=== PATIENT | female | born 1945 | race Caucasian/White ===

== ENCOUNTER 2016-10-22 08:53 | Outpatient (CLI) | payer MEDICARE | END 2016-10-22 08:54 | disposition home or self-care (01) | DX: I10 Essential (primary) hypertension (principal); E78.9 Disorder of lipoprotein metabolism, unspecified ==

== ENCOUNTER 2017-01-03 14:00 | Outpatient (CLI) | payer MEDICARE | END 2017-01-03 14:01 | disposition home or self-care (01) | LOC: LAB.R 14:00 | PROVIDERS: ATTEND Family Medicine | DX: R30.0 Dysuria (principal) | CPT/HCPCS: 87086 ==

== ENCOUNTER 2017-07-07 08:00 | Outpatient (CLI) | payer MEDICARE | END 2017-07-07 08:01 | LOC: LAB.R 08:00 | PROVIDERS: ATTEND Registered Nurse | DX: R30.0 Dysuria (principal) | CPT/HCPCS: 87086 ==

== ENCOUNTER 2017-11-10 08:00 | Outpatient (CLI) | payer MEDICARE ==
[2017-11-10 12:53] LABS: HGB - HEMOGLOBIN 12.9 g/dL (12.0-16.0); MEAN CORPUSCULAR HEMOGLOBIN 30.8 pg (27.0-31.0); MEAN CORPUSCULAR HGB CONC 34.2 g/dL (32.0-36.0); MEAN CORPUSCULAR VOLUME 90.1 fL (81.0-99.0); MEAN PLATELET VOLUME 9.4 fL (7.9-10.8); RED BLOOD COUNT 4.21 10^6/uL (4.20-5.40); WHITE BLOOD COUNT 5.4 x10^3/uL (4.8-10.8)
[2017-11-10 14:31] LABS: URIC ACID 4.9 mg/dL (2.6-7.2)
[2017-11-10 14:42] LABS: CRP - C-REACTIVE PROTEIN < 1.0 mg/dL (0-1.0)
[2017-11-10 16:18] LABS: RHEUMATOID FACTOR POSITIVE (Negative)
== END 2017-11-10 08:01 | disposition home or self-care (01) ==
LOC: LAB.WCP 08:00
PROVIDERS: ATTEND Family Medicine
DX: M25.50 Pain in unspecified joint (principal)
CPT/HCPCS: 36415; 84550; 85651; 86140; 86200; 86430

== ENCOUNTER 2018-03-02 08:10 | Outpatient (CLI) | payer MEDICARE ==
[2018-03-02 12:27] LABS: BASOPHILS % (AUTO) 0.9 %; EOSINOPHILS # (AUTO) 0.2 10^3/uL (0.0-0.7); EOSINOPHILS % (AUTO) 4.7 %; HGB - HEMOGLOBIN 12.7 g/dL (12.0-16.0); LYMPHOCYTES # (AUTO) 1.9 10^3/uL (1.5-3.5); LYMPHOCYTES % (AUTO) 38.5 %; MEAN CORPUSCULAR HEMOGLOBIN 30.8 pg (27.0-31.0); MEAN CORPUSCULAR HGB CONC 34.5 g/dL (32.0-36.0); MEAN CORPUSCULAR VOLUME 89.4 fL (81.0-99.0); MEAN PLATELET VOLUME 9.5 fL (7.9-10.8); MONOCYTES # (AUTO) 0.6 10^3/uL (0.0-1.0); MONOCYTES % (AUTO) 11.8 %; NEUTROPHILS # (AUTO) 2.2 10^3/uL (1.5-6.6); NEUTROPHILS % (AUTO) 44.1 %; PLT - PLATELET COUNT 282 10^3/uL (130-450); RED BLOOD COUNT 4.14 10^6/uL (4.20-5.40); RED CELL DISTRIBUTION WIDTH 12.8 % (12.0-15.0)
[2018-03-02 12:42] LABS: ALBUMIN 3.5 g/dL (3.2-5.5); ALBUMIN/GLOBULIN RATIO 1.1 (1.0-2.2); ALKALINE PHOSPHATASE 66 IU/L (42-121); ALT ALANINE AMINOTRANSFERASE 24 IU/L (10-60); AST ASPARTATE AMINOTRANSFERASE 24 IU/L (10-42); BILIRUBIN,TOTAL 0.6 mg/dL (0.2-1.0); BUN - BLOOD UREA NITROGEN 12 mg/dL (6-20); CALCIUM 9.4 mg/dL (8.5-10.3); CARBON DIOXIDE - CO2 29 mmol/L (21-32); CHLORIDE 104 mmol/L (101-111); CHOL/HDL RATIO 2.1 (<4.4); CHOLESTEROL 111 mg/dL; CREATININE 0.6 mg/dL (0.4-1.0); GFR - MDRD 99 (>89); GLUCOSE 98 mg/dL (70-100); HDL CHOLESTEROL 53 mg/dL; LDL CHOLESTEROL,CALCULATED 34 mg/dL; LDL/HDL RATIO 0.6 (<4.4); SODIUM 141 mmol/L (135-145); TOTAL PROTEIN 6.6 g/dL (6.7-8.2); VLDL CHOLESTEROL 24 mg/dL
== END 2018-03-02 08:11 | disposition home or self-care (01) ==
LOC: LAB.WCP 08:10
PROVIDERS: ATTEND Family Medicine
DX: R60.9 Edema, unspecified (principal); E05.90 Thyrotoxicosis, unspecified without thyrotoxic crisis or storm; E78.5 Hyperlipidemia, unspecified; I10 Essential (primary) hypertension
CPT/HCPCS: 36415; 80053; 80061; 83721; 84443; 85025

== ENCOUNTER 2018-04-13 08:01 | Outpatient (CLI) | payer MEDICARE ==
[2018-04-13 13:02] LABS: THYROID STIMULATING HORMONE < 0.08 uIU/mL (0.34-5.60)
== END 2018-04-13 08:02 | disposition home or self-care (01) ==
LOC: LAB.WCP 08:01
PROVIDERS: ATTEND Family Medicine
DX: E05.90 Thyrotoxicosis, unspecified without thyrotoxic crisis or storm (principal); E05.00 Thyrotoxicosis with diffuse goiter without thyrotoxic crisis or storm
CPT/HCPCS: 36415; 81599; 83519; 84439; 84443; 84481

== ENCOUNTER 2018-04-19 10:40 | Outpatient (CLI) | payer MEDICARE ==
--- NOTE | 2018-04-20 09:22 | Mammography Report ---
Reason: SCREENING MAMMO Procedure Date: 04/19/2018 Accession Number: [id number] / [id number] Procedure: MGN - Screening Mammo Dig Bilat CPT Code: FULL RESULT: EXAM: Screening Mammo Dig Bilat DATE: 04/19/2018 10:56 AM CLINICAL HISTORY: 72-year-old female with history of benign left breast biopsy. TECHNIQUE: Bilateral CC and MLO views were obtained. COMPARISON: 06/16/2016, 08/27/2014, 04/12/2012, 09/10/2011. FINDINGS: The breasts demonstrate heterogeneously dense fibroglandular parenchyma bilaterally. A biopsy marker is again seen in the left breast. No suspicious masses, clustered microcalcifications, or regions of architectural distortion are identified. IMPRESSION: Benign findings RECOMMENDATION: Routine annual screening unless otherwise clinically indicated. BIRADS CATEGORY 2: Benign findings STANDARD QUALIFYING STATEMENTS: 1. This examination was reviewed with the aid of Computer-Aided Detection (CAD). 2. A negative or benign imaging report should not delay biopsy if clinically suspicious findings are present. Consider surgical consultation if warrented. More than 5% of cancers are not identified by imaging. 3. Dense breasts may obscure an underlying neoplasm. 4. This examination was reviewed without the aid of 3D breast imaging (tomosynthesis).
== END 2018-04-19 10:41 | disposition home or self-care (01) ==
LOC: DI.N 10:40
DX: Z12.31 Encounter for screening mammogram for malignant neoplasm of breast (principal)
CPT/HCPCS: 77067

== ENCOUNTER 2018-04-27 14:33 | Outpatient (CLI) | payer MEDICARE ==
--- NOTE | 2018-04-27 16:33 | Ultrasound Report ---
Reason: GRAVES' DISEASE Procedure Date: 04/27/2018 Accession Number: [id number] / [id number] Procedure: US - Head or Neck Soft Tissue CPT Code: FULL RESULT: EXAM: THYROID ULTRASOUND EXAM DATE: 04/27/2018 04:06 PM. CLINICAL HISTORY: GRAVES DISEASE. Follow-up COMPARISON: 08/27/2015. TECHNIQUE: Real time sonographic imaging of the thyroid was performed by the barrel and receiver aligner. Multiple retail field representative static images were saved for review. FINDINGS: THYROID GLAND: Right Lobe: 4.1 x 1.4 x 1.7 cm, volume 5.3 cc. Heterogeneous echotexture . Several subcentimeter avascular solid and cystic nodules are present. The dominant is in the inferior pole measuring 1 x 1 x 0.8 cm not appreciably changed since 2016 Left Lobe: 3.8 x 1.6 x 1.6 cm, volume 5.1 cc. Heterogeneous echotexture with several scattered predominantly subcentimeter cysts/cystic nodules. Isthmus: 0.4 cm AP. Isthmic Nodules: None. LYMPH NODES: Few scattered normal-appearing lymph nodes, dominant on the right 1.2 x 2.9 x 1 cm and on the left 0.9 x 1.7 x 0.8 cm. OTHER: No appreciable change compared with 08/27/2015. IMPRESSION: Stable thyroid ultrasound compared with 2016 redemonstrating a heterogeneous gland with multiple small cystic and solid nodules. No microcalcifications are appreciated. Management recommendations are based on 2015 [place] [employer] Management Guidelines for Adult Patients with Thyroid Nodules and Differentiated Thyroid Cancer. RADIA
== END 2018-04-27 14:34 | disposition home or self-care (01) ==
LOC: DI 14:33
PROVIDERS: ATTEND Family Medicine
DX: E05.00 Thyrotoxicosis with diffuse goiter without thyrotoxic crisis or storm (principal)
CPT/HCPCS: 76536

== ENCOUNTER 2018-07-07 01:14 | Inpatient (IN) | payer MEDICARE ==
[2018-07-07] MEDS ORDERED: SODIUM CHLORIDE 0.9% 1,000 ML IV ONE ×2 (01:45→19:31)
--- NOTE | 2018-07-07 01:45 | ED Physician Documentation ---
History of Present Illness - Stated complaint Stated Complaint: DIFF BREATHING,NAUSEA - History obtained from History obtained from: Patient, Family - History of Present Illness Timing: Enter time (2299), Today - Additonal information Additional information: 72-year-old female was feeling well earlier today went to her usual swimming pool exercise without incident. She denies any current or recent illness. She was trying to go to sleep this evening and did not feel well she then developed significant diaphoresis and when she tried to get up she collapsed and felt short of breath. Her was able to drive her to the hospital. She is come into the emergency department now feeling short of breath and dry mouth. She did have some confusion with the initial syncopal episode. She was last in to see her pyroglazer about 1 month ago who continued her on her medications. She states that she has been dealing with hyper thyroid for the past 3-4 years again after she had had a prior thyroid ablation. She is on methimazole. She has last seen her primary and had her blood pressure medications adjusted about 6 months ago. She has one prior hospitalization here for an episode of chest pain which ended up being a pulled muscle in her back. Review of Systems Constitutional: reports: Sweats Eyes: denies: Decreased vision Ears: denies: Ear pain Nose: denies: Rhinorrhea / runny nose, Congestion Throat: denies: Sore throat Cardiac: denies: Chest pain / pressure, Palpitations Respiratory: reports: Dyspnea. denies: Cough, Hemoptysis, Wheezing GI: denies: Abdominal Pain, Nausea, Vomiting : denies: Dysuria, Frequency Skin: denies: Rash Musculoskeletal: denies: Neck pain, Back pain, Extremity pain Neurologic: reports: Generalized weakness, Difficulty speaking. 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: Other : None HEENT: None Psych: None Musculoskeletal: Osteoarthritis Derm: None - Past Surgical History Past Surgical History: Yes General: Cholecystectomy, Appendectomy Ortho: Knee replacement - Present Medications Home Medications: Ambulatory Orders Medication Instructions Recorded Confirmed Aspirin [Aspir 81] 81 mg PO DAILY 01/09/13 12/20/14 Cholecalciferol (Vitamin D3) 400 unit PO DAILY 01/09/13 12/23/14 [Vitamin D] Lisinopril 30 mg PO DAILY 01/09/13 12/23/14 Lovastatin [Mevacor] 20 mg PO DAILY 01/09/13 12/23/14 Multivitamin [Multivitamins] 1 each PO DAILY 01/09/13 12/23/14 [place]-3 Fatty Acids/Fish Oil 1 each PO DAILY 01/09/13 12/23/14 [[place] 3 1,000 mg Softgel] hydroCHLOROthiazide [Hydrodiuril] 25 mg PO DAILY 01/09/13 12/23/14 Potassium Chloride [Micro-K] 10 meq PO DAILY 08/05/14 12/23/14 methIMAzole [Methimazole] 2.5 mg PO DAILY 08/05/14 12/23/14 - Allergies Allergies/Adverse Reactions: Allergies Allergy/AdvReac Type Severity Reaction Status Date / Time No Known Drug Allergies Allergy Verified 07/07/18 01:44 - Social History Does the pt smoke?: No Smoking Status: Never smoker Does the pt have substance abuse?: No - Immunizations Immunizations are current?: Yes - POLST Patient has POLST: No PD ED PE NORMAL - Vitals Vital signs reviewed: Yes (hypotensive ) - General General: Well developed/nourished, Other (72 y/o female with mildlly dysarthric speech secondary to dry mouth is hypotensive supine. ) - HEENT HEENT: Atraumatic, PERRL, EOMI, Other (dry mucous membranes ) - Neck Neck: Supple, no meningeal sign, No bony TTP - Cardiac Cardiac: RRR, No murmur - Respiratory Respiratory: No respiratory distress, Other (diminished breath sound bilaterally ) - Abdomen Abdomen: Soft, Non tender - Back Back: No CVA TTP, No spinal TTP - Derm Derm: Normal color, Warm and dry, No rash - Extremities Extremities: No deformity, No edema - Neuro Neuro: Alert and oriented X 3, panel saw operator 2-12 intact, No motor deficit, No sensory deficit, Other (dysarthric speech clears with fluids ) Eye Opening: Spontaneous Motor: Obeys Commands Verbal: Oriented GCS Score: 15 - Psych Psych: Normal mood, Normal affect Results - Vitals Vitals: Vital Signs - 24 hr 07/07/18 07/07/18 07/07/18 01:20 01:46 01:56 Temperature 36 C L Heart Rate 98 89 77 Respiratory 16 21 20 Rate Blood Pressure 79/60 L 88/49 L 96/50 L O2 Saturation 92 88 L 96 07/07/18 07/07/18 07/07/18 02:06 02:15 02:48 Temperature Heart Rate 83 73 70 Respiratory 20 18 14 Rate Blood Pressure 92/46 L 99/50 L 106/51 L O2 Saturation 96 98 98 07/07/18 07/07/18 07/07/18 03:07 03:48 04:15 Temperature Heart Rate 99 79 125 H Respiratory 18 17 15 Rate Blood Pressure 123/61 112/50 L 100/61 O2 Saturation 98 96 91 L 07/07/18 04:32 Temperature 36.0 C L Heart Rate 79 Respiratory 24 Rate Blood Pressure 101/64 O2 Saturation 98 Oxygen O2 Source Nasal cannula Oxygen Flow Rate 2 - EKG (time done) 0120 Rate: Rate (enter#) (99) Rhythm: NSR Intervals: Prolonged QT QRS: LVH Ischemia: Normal ST segments Other comments: Other comments (early transition ) Compare to prior EKG: Changed from prior EKG (08-05-14 rate has increased the previous flat T waves have resolved and the QT interval has increased. ), Other Computer interpretation: Agree with computer - Labs Labs: Laboratory Tests 07/07/18 07/07/18 07/07/18 01:38 01:45 01:45 WBC 5.2 RBC 3.96 L Hgb 12.3 Hct 36.2 L MCV 91.3 MCH 31.1 H MCHC 34.1 RDW 14.2 Plt Count 201 MPV 9.1 Neut # (Auto) 2.4 Lymph # (Auto) 2.1 [place] # (Auto) 0.4 Eos # (Auto) 0.3 Baso # (Auto) 0.1 Absolute Nucleated RBC 0.00 Nucleated RBC % 0.1 Sodium 139 Potassium 2.7 L Chloride 104 Carbon Dioxide 28 Anion Gap 7.0 BUN 20 Creatinine 0.8 Estimated GFR (MDRD) 71 L Glucose 176 H POC Whole Bld Glucose 178 H Lactic Acid Calcium 8.4 L Total Bilirubin 0.2 AST 23 ALT 24 Alkaline Phosphatase 68 Troponin I B-Natriuretic Peptide Total Protein 6.6 L Albumin 3.6 Globulin 3.0 Albumin/Globulin Ratio 1.2 Lipase 46 Urine Color Urine Clarity Urine pH Ur Specific [place] Urine Protein Urine Glucose (UA) Urine Ketones Urine Occult Blood Urine Nitrite Urine Bilirubin Urine Urobilinogen Ur Leukocyte Esterase Ur Microscopic Review Urine Culture Comments 07/07/18 07/07/18 07/07/18 01:45 01:45 01:45 WBC RBC Hgb Hct MCV MCH MCHC RDW Plt Count MPV Neut # (Auto) Lymph # (Auto) [place] # (Auto) Eos # (Auto) Baso # (Auto) Absolute Nucleated RBC Nucleated RBC % Sodium Potassium Chloride Carbon Dioxide Anion Gap BUN Creatinine Estimated GFR (MDRD) Glucose POC Whole Bld Glucose Lactic Acid 1.5 Calcium Total Bilirubin AST ALT Alkaline Phosphatase Troponin I < 0.04 B-Natriuretic Peptide 16 Total Protein Albumin Globulin Albumin/Globulin Ratio Lipase Urine Color Urine Clarity Urine pH Ur Specific [place] Urine Protein Urine Glucose (UA) Urine Ketones Urine Occult Blood Urine Nitrite Urine Bilirubin Urine Urobilinogen Ur Leukocyte Esterase Ur Microscopic Review Urine Culture Comments 07/07/18 02:50 WBC RBC Hgb Hct MCV MCH MCHC RDW Plt Count MPV Neut # (Auto) Lymph # (Auto) [place] # (Auto) Eos # (Auto) Baso # (Auto) Absolute Nucleated RBC Nucleated RBC % Sodium Potassium Chloride Carbon Dioxide Anion Gap BUN Creatinine Estimated GFR (MDRD) Glucose POC Whole Bld Glucose Lactic Acid Calcium Total Bilirubin AST ALT Alkaline Phosphatase Troponin I B-Natriuretic Peptide Total Protein Albumin Globulin Albumin/Globulin Ratio Lipase Urine Color DARK YELLOW Urine Clarity CLEAR Urine pH 6.0 Ur Specific [place] >=1.030 H Urine Protein NEGATIVE Urine Glucose (UA) NEGATIVE Urine Ketones TRACE Urine Occult Blood NEGATIVE Urine Nitrite NEGATIVE Urine Bilirubin NEGATIVE Urine Urobilinogen 0.2 (NORMAL) Ur Leukocyte Esterase NEGATIVE Ur Microscopic Review NOT INDICATED Urine Culture Comments NOT INDICATED - Rads (name of study) CT angio chest Radiology: Prelim report reviewed (Impression: 1. No large pulmonary emboli is seen segmental vessels are not well assessed due to only moderate enhancement of the pulmonary arteries, and motion artifact. 2. Elevated right hemidiaphragm with bibasilar atelectasis or infiltrate, right greater than left. 3. Mild cardiomegaly with possible interstitial edema.), Discussed with rads (atelectasis and interstial fluid more likely than bacterial pneumonia. 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 She responds to Oxygen and saline and is improved. Her diagnostics reveal bibasilar atelectasis/infiltrate with normal WBC and no evidence of PE. Her lactate is not elevated, urine is concentrated, trop is negative and potassium is low. The patient feels well laying flat and wants to go home. Her blood pressure is marginal at 100 systolic and her oxygen saturat ion on room air at the conclusion of diagnostics is 92-93%. She fails a road test miserably with heart rate to 115, O2 sat to 89% and symptoms of dyspnea and lightheadedness on standing at the bedside. It took this to convince the patient that she needed to stay and she is very agreeable to stay. Departure - Departure Disposition: 66 [facility] DC/Xfer Clinical Impression: Hypokalemia Pneumonia Qualifiers: Pneumonia type: due to unspecified organism Laterality: bilateral Lung location: lower lobe of lung Qualified Code(s): J18.1 - Lobar pneumonia, unspecified organism Condition: Fair
[2018-07-07 02:07] LABS: BASOPHILS # (AUTO) 0.1 10^3/uL (0.0-0.1); EOSINOPHILS # (AUTO) 0.3 10^3/uL (0.0-0.7); HGB - HEMOGLOBIN 12.3 g/dL (12.0-16.0); LYMPHOCYTES # (AUTO) 2.1 10^3/uL (1.5-3.5); LYMPHOCYTES % (AUTO) 40.8 %; MEAN CORPUSCULAR HEMOGLOBIN 31.1 pg (27.0-31.0); MEAN CORPUSCULAR HGB CONC 34.1 g/dL (32.0-36.0); MEAN CORPUSCULAR VOLUME 91.3 fL (81.0-99.0); MEAN PLATELET VOLUME 9.1 fL (7.9-10.8); MONOCYTES # (AUTO) 0.4 10^3/uL (0.0-1.0); MONOCYTES % (AUTO) 6.9 %; NEUTROPHILS # (AUTO) 2.4 10^3/uL (1.5-6.6); NEUTROPHILS % (AUTO) 46.3 %; PLT - PLATELET COUNT 201 10^3/uL (130-450); RED BLOOD COUNT 3.96 10^6/uL (4.20-5.40); RED CELL DISTRIBUTION WIDTH 14.2 % (12.0-15.0); WHITE BLOOD COUNT 5.2 x10^3/uL (4.8-10.8)
[2018-07-07 02:08] LABS: ALBUMIN 3.6 g/dL (3.2-5.5); ALBUMIN/GLOBULIN RATIO 1.2 (1.0-2.2); BILIRUBIN,TOTAL 0.2 mg/dL (0.2-1.0); CALCIUM 8.4 mg/dL (8.5-10.3); CREATININE 0.8 mg/dL (0.4-1.0); TOTAL PROTEIN 6.6 g/dL (6.7-8.2)
[2018-07-07] MEDS ORDERED: POTASSIUM CHLOR 10 MEQ/100 ML 10 MEQ/100 ML BAG IV ONE (02:12)
[2018-07-07] MEDS ORDERED: POTASSIUM BICARB 25 MEQ TABLET PO STA (02:12)
[2018-07-07] MEDS ORDERED: ONDANSETRON 4 MG/2 ML VIAL IVP STA (02:18)
[2018-07-07] MEDS ORDERED: ONDANSETRON 4 MG/2 ML VIAL ONE (02:23)
[2018-07-07] MEDS ORDERED: IOVERSOL 320 100 ML VIAL IVP ONE ×3 (02:25→03:45)
[2018-07-07 03:21] LABS: BILIRUBIN,URINE NEGATIVE (NEGATIVE); GLUCOSE, URINE (UA) NEGATIVE (NEGATIVE); KETONES,URINE (UA) TRACE mg/dL (NEGATIVE); LEUKOCYTE ESTERASE, URINE NEGATIVE (NEGATIVE); NITRITE,URINE NEGATIVE (NEGATIVE); OCCULT BLOOD,URINE NEGATIVE (NEGATIVE); PROTEIN,URINE NEGATIVE (NEGATIVE); UROBILINOGEN,URINE 0.2 (NORMAL) E.U./dL (NORMAL)
[2018-07-07 03:22] LABS: CLARITY,URINE CLEAR (CLEAR)
--- NOTE | 2018-07-07 04:02 | CT Report ---
Reason: syncope collapse dsypnea hypoxia hypotension Procedure Date: 07/07/2018 Accession Number: [id number] / [id number] Procedure: CT - Chest Angio (PE) CPT Code: FULL RESULT: EXAM: CT ANGIOGRAM CHEST EXAM DATE: 07/07/2018 03:44 AM. CLINICAL HISTORY: Syncope collapse dyspnea hypoxia hypotension. COMPARISON: None. TECHNIQUE: Routine helical imaging was performed through the chest in the pulmonary arterial phase. IV Contrast: OPTI 320 80mL. Reconstructions: Coronal 3-D MIP reconstructions.Sagittal and coronal. In accordance with CT protocol optimization, one or more of the following dose reduction techniques were utilized for this exam: automated exposure control, adjustment of mA and/or KV based on patient size, or use of iterative reconstructive technique. FINDINGS: Pulmonary Arteries: Diagnostic quality: Markedly suboptimal through the segmental arteries. Images are degraded due to only moderate enhancement of the pulmonary arteries. Additionally, there is motion artifact. No large pulmonary emboli are seen. Segmental vessels are not well assessed. No evidence of right heart strain. Lungs/Pleura: Elevated right hemidiaphragm. Bibasilar atelectasis or infiltrate, right greater than left. Possible interstitial edema. No pleural effusion. No pneumothorax. Mediastinum: Mild cardiomegaly. Mild coronary artery calcifications. Normal sized mediastinal lymph nodes. Thoracic Aorta: Moderate atherosclerosis. No aneurysm or dissection. Upper Abdomen: Liver cysts measuring up to 2.3 cm. Other: Degenerative changes in the spine. IMPRESSION: 1. No large pulmonary emboli is seen. Segmental vessels are not well assessed due to only moderate enhancement of the pulmonary arteries, and motion artifact. 2. Elevated right hemidiaphragm with bibasilar atelectasis or infiltrate, right greater than left. 3. Mild cardiomegaly with possible interstitial edema. RADIA
[2018-07-07] MEDS ORDERED: cefTRIAXone 1 GM in SODIUM CHLORIDE 0.9% MINIBAG 100 ML IV STA (04:39)
[2018-07-07] MEDS ORDERED: MAGNESIUM SULFATE 2 GRAM 2 GM/50 ML BAG IV ONE (04:54)
[2018-07-07] MEDS ORDERED: TEMAZEPAM 15 MG CAPSULE PO PRN (05:11)
[2018-07-07] MEDS ORDERED: ONDANSETRON 4 MG/2 ML VIAL IVP PRN (05:11)
[2018-07-07] MEDS ORDERED: PROCHLORPERAZINE 10 MG/2 ML VIAL IVP PRN (05:11)
[2018-07-07] MEDS ORDERED: ACETAMINOPHEN 325 MG TABLET PO PRN (05:11)
[2018-07-07] MEDS ORDERED: AZITHROMYCIN INJ 500 MG in SODIUM CHLORIDE 0.9% 250 ML IV STA (05:18)
[2018-07-07] MEDS: SODIUM CHLORIDE 0.9% 1,000 ML IV SCH ×2 (07:27→19:30)
--- NOTE | 2018-07-07 07:28 | HISTORY & PHYSICAL EXAMINATION ---
Chief Complaint - Chief Complaint Chief Complaint: Lightheadedness, Weakness History of Present Illness - Admitted From Admitted From:: Emergency Department - History Obtained From Records Reviewed: ED History obtained from: Patient, and Dr Angela Exam Limitations: None - History of Present Illness HPI Comment/Other: Patient is a 72-year-old female who is generally healthy with a past medical history of hyperthyroidism who presented to the emergency room after a near syncopal event at home. 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 That evening when she went to bed she started to suddenly feel unwell feeling of lightheadedness, clammy and diaphoretic. She went to stand up and felt suddenly quite weak and her legs collapsed under her but she was able to guide herself to the floor without completely passing out. She was able to leave her house on her own accord with her assisting her and she arrived at the emergency room via private vehicle. Next In the emergency room she was found to be hypotensive with blood pressures in the 80s over 50s, she had a pulse ox of 88% on room air, and there was further workup identifying a hypokalemia of 2.7. She had one episode of diarrhea after arriving to the hospital but before this did not have any diarrhea. She denies any chest pain or shortness of breath. Denies any fever, recent illnesses, or flulike symptoms. Denies any previous similar episodes.The remainder of the workup in the ER was relatively unremarkable with respect to labs and imaging. Labs as below.I was asked to admit the patient because the chest x-ray does have the suggestion of a possible community-acquired pneumonia the patient did receive 1 dose of Rocephin in the emergency room. She was also put on 2 L nasal cannula for oxygen support. 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 - Substance History Use: Uses substance without health or social issues: NONE - POLST Patient has POLST: No POLST Status: Full Code Meds/Allgy - Home Medications Home Medications: Ambulatory Orders Medication Instructions Recorded Confirmed Aspirin [Aspir 81] 81 mg PO DAILY 01/09/13 07/07/18 Lovastatin [Mevacor] 20 mg PO DAILY 01/09/13 07/07/18 Multivitamin [Multivitamins] 1 each PO DAILY 01/09/13 07/07/18 [place]-3 Fatty Acids/Fish Oil 1 each PO DAILY 01/09/13 07/07/18 [[place] 3 1,000 mg Softgel] hydroCHLOROthiazide [Hydrodiuril] 25 mg PO DAILY 01/09/13 07/07/18 Potassium Chloride [Micro-K] 10 meq PO DAILY 08/05/14 07/07/18 methIMAzole [Methimazole] 2.5 mg PO DAILY 08/05/14 07/07/18 Irbesartan 1 tab PO DAILY 07/07/18 07/07/18 Magnesium Oxide [Magnesium] 1 cap PO DAILY 07/07/18 07/07/18 [place]-3/Dha/Epa/Fish Oil [Fish Oil 1 cap PO DAILY 07/07/18 07/07/18 1,000 mg Softgel] Ubidecarenone [Co Q-10] 200 mg PO DAILY 07/07/18 07/07/18 - Allergies Allergies/Adverse Reactions: Allergies Allergy/AdvReac Type Severity Reaction Status Date / Time No Known Drug Allergies Allergy Verified 07/07/18 01:44 Prior Level of Functionality: Independent Exam - Vital Signs Reviewed Vital Signs: Yes Vital Signs: Vital Signs x48h Temp Pulse Pulse Resp BP BP Pulse Ox 07/07/18 06:45 36.4 C L 102 H 20 107/60 97 07/07/18 06:21 36.5 C 105 H 18 100/52 L 96 07/07/18 05:32 36.2 C L 85 20 109/48 L 95 07/07/18 05:08 35.9 C L 75 17 99/45 L 94 07/07/18 04:32 36.0 C L 79 24 101/64 98 07/07/18 04:15 125 H 15 100/61 91 L 07/07/18 03:48 79 17 112/50 L 96 07/07/18 03:07 99 18 123/61 98 07/07/18 02:48 70 14 106/51 L 98 07/07/18 02:15 73 18 99/50 L 98 07/07/18 02:06 83 20 92/46 L 96 07/07/18 01:56 77 20 96/50 L 96 07/07/18 01:46 89 21 88/49 L 88 L 07/07/18 01:20 36 C L 98 16 79/60 L 92 Vital Signs - 24 hr 07/07/18 07/07/18 07/07/18 01:20 01:46 01:56 Temperature 36 C L Heart Rate 98 89 77 Heart Rate [ Brachial] Respiratory 16 21 20 Rate Blood Pressure 79/60 L 88/49 L 96/50 L Blood Pressure [Right Brachial artery] O2 Saturation 92 88 L 96 07/07/18 07/07/18 07/07/18 02:06 02:15 02:48 Temperature Heart Rate 83 73 70 Heart Rate [ Brachial] Respiratory 20 18 14 Rate Blood Pressure 92/46 L 99/50 L 106/51 L Blood Pressure [Right Brachial artery] O2 Saturation 96 98 98 07/07/18 07/07/18 07/07/18 03:07 03:48 04:15 Temperature Heart Rate 99 79 125 H Heart Rate [ Brachial] Respiratory 18 17 15 Rate Blood Pressure 123/61 112/50 L 100/61 Blood Pressure [Right Brachial artery] O2 Saturation 98 96 91 L 07/07/18 07/07/18 07/07/18 04:32 05:08 05:32 Temperature 36.0 C L 35.9 C L 36.2 C L Heart Rate 79 75 85 Heart Rate [ Brachial] Respiratory 24 17 20 Rate Blood Pressure 101/64 99/45 L 109/48 L Blood Pressure [Right Brachial artery] O2 Saturation 98 94 95 07/07/18 07/07/18 06:21 06:45 Temperature 36.5 C 36.4 C L Heart Rate 105 H Heart Rate [ 102 H Brachial] Respiratory 18 20 Rate Blood Pressure 100/52 L Blood Pressure 107/60 [Right Brachial artery] O2 Saturation 96 97 Oxygen O2 Source Nasal cannula Oxygen Flow Rate 2 - Physical Exam General Appearance: positive: No acute distress Eyes Bilateral: positive: Normal inspection ENT: positive: ENT inspection nml Neck: positive: Nml inspection, Thyroid nml Respiratory: positive: Other (Minimal chest tenderness at a particular point of the left lateral chest wall) Cardiovascular: positive: Regular rate & rhythm, No murmur, No gallop, Irregularly irregular Peripheral Pulses: positive: 2+ Abdomen: positive: Non-tender, No organomegaly, Nml bowel sounds, No distention Back: negative: CVA tenderness (R), CVA tenderness (L) Skin: positive: Color nml Extremities: positive: Non-tender, No pedal edema Neurologic/Psychiatric: positive: Oriented x3, CN's nml (2-12), Motor nml, Sensation nml, Mood/affect nml Conclusion/Plan - Problem List (1) Near syncope Conclusion/Plan: Patient had a vasovagal or near syncopal events with etiology at this point not yet clearly defined. We will admit the patient and initiate to the Syncope workup with carotid ultrasound, echocardiogram, IV fluids and blood pressure monitoring. Will hold antihypertensives. Pending the results, etiology may be related to possible pneumonia as discussed below versus other viral syndrome. (2) Hypotension Conclusion/Plan: Transient hypotension with a syncopal events now improved with IV fluid resuscitation possibly related to dehydration and possibly related to community- acquired pneumonia per chest x-ray. Patient will be admitted with IV fluids and will hold antihypertensives and continue to monitor. Qualifiers: Hypotension type: orthostatic hypotension Qualified Code(s): I95.1 - Orthostatic hypotension (3) Weakness Conclusion/Plan: Generalized weakness related to syncope, seems to improve when she is at rest. Bed on exam right now she feels like she is at her baseline which tries to stand up she gets weak again. We will get orthostatic levels, check serum cortisol for possibility of renal insufficiency, treat underlying pneumonia and follow clinical course. Also given her history of hyperthyroidism and recently Adjustment on thyroid medication will check thyroid labs. (4) Hypoxia Conclusion/Plan: Chest x-ray is suggestive of pneumonia she seems to be dehydrated and this may be under exposing the extent of pneumonia as it does not seem very significant. For now given the hypoxia and her other symptoms I will treat this as a community-acquired pneumonia with azithromycin and ceftriaxone. Pending the clinical course if she stays here for another couple of days she may need a repeat chest x-ray when she is hydrated to better visualize any residual pneumonia. (5) Hyperthyroidism Conclusion/Plan: As stated above, check thyroid labs (6) Hypokalemia Conclusion/Plan: Unclear source of hypokalemia given that she is not had much GI loss and does not have any history to suggest tissue destruction. She is also on oral potassium at home for cramping. We will replace IV fluids and potassium has been replaced in the ER and will recheck the potassium level and replace as needed. - Lab Results Lab results reviewed: Yes Fish Bones: 07/07/18 01:45 07/07/18 01:45 - Diagnostic Imaging Results Diagnostic Imaging Results: positive: Prelim report reviewed, Final report reviewed - EKG Results EKG Interpreted Independently: Yes EKG Comparison: Changed from prior EKG Core Measures - Anticipated LOS I expect patient to be DC'd or transferred within 96 hours.: Yes - DVT/VTE - Prophylaxis VTE/DVT Device ordered at admit?: Yes
[2018-07-07] MEDS: SODIUM CHLORIDE FLUSH 0.9% 10 ML SYRINGE IVP PRN (07:45)
[2018-07-07] MEDS: PANTOPRAZOLE 40 MG VIAL IVP SCH (07:45)
[2018-07-07] MEDS: SODIUM CHLORIDE FLUSH 0.9% 10 ML SYRINGE IVP SCH ×2 (08:39→19:31)
[2018-07-07] MEDS ORDERED: MAGNESIUM OXIDE 400 MG TABLET PO SCH ×2 (09:00→11:00)
[2018-07-07] MEDS: MULTIVITAMIN TABLET PO SCH (10:48)
[2018-07-07] MEDS: POTASSIUM CHLORIDE 10 MEQ CAPSULE PO SCH (10:48)
[2018-07-07] MEDS: ATORVASTATIN 10 MG TABLET PO SCH (10:48)
[2018-07-07] MEDS: ASPIRIN EC 81 MG TABLET PO SCH (10:48)
[2018-07-07] MEDS: POLYETHYLENE GLYCOL 3350 17 GM PACKET PO SCH (10:49)
[2018-07-07] MEDS: methIMAzole 5 MG TABLET PO SCH (10:49)
[2018-07-07] MEDS: HYDROcod/ACETAM 5/325 MG TABLET PO PRN ×3 (11:11→21:33)
--- NOTE | 2018-07-07 13:15 | PROVIDER PROGRESS NOTE ---
Hospitalist Cross-cover Note - Cross-Cover Note Cross-Cover Note: The patient was admitted this morning by the night hospitalist. I saw and examined the patient this morning. She was weaned off of all oxygen and is now on room air. She was able to walk to the bathroom and back with assistance. The patient's orthostatics were negative. Her vital signs appear to be improving this morning. The patient's a.m. cortisol level was adequate. She is being given potassium replacement. She will be continued on IV antibiotics. She did undergo echocardiogram this morning which shows a normal ejection fraction and grade 1 diastolic dysfunction. It does not show any significant valvular abnormalities, mass or thrombus. The patient appears to be improving and is still awaiting a carotid Doppler. We will continue antibiotics over the course of the day today and if patient continues to improve she will likely be discharged in the morning.
[2018-07-07] MEDS: KETOROLAC 30 MG/ML VIAL IVP PRN (13:34)
[2018-07-08] MEDS: SODIUM CHLORIDE FLUSH 0.9% 10 ML SYRINGE IVP SCH ×2 (01:17→08:39)
--- NOTE | 2018-07-08 02:05 | Ultrasound Report ---
Reason: near syncope Procedure Date: 07/08/2018 Accession Number: [id number] / [id number] Procedure: US - Carotid Doppler Complete CPT Code: FULL RESULT: EXAM: BILATERAL CAROTID AND VERTEBRAL ARTERY DUPLEX DOPPLER ULTRASOUND: EXAM DATE: 07/08/2018 12:41 AM CLINICAL HISTORY: Near syncope. COMPARISON: None. TECHNIQUE: Grayscale imaging, color Doppler, and duplex spectral Doppler were used to evaluate the carotid and vertebral arteries bilaterally. Static images were obtained. FINDINGS: Mild calcified plaque is seen in the carotid arteries bilaterally. Normal antegrade flow is present in bilateral vertebral arteries. VELOCITIES (cm/sec): Right CCA mid: PSV 124 cm/sec CCA dist: PSV 106 cm/sec ICA prox: PSV 119 cm/sec, EDV 44.3 cm/sec ICA mid: PSV 135.9 cm/sec, EDV 42.7 cm/sec ICA dist: PSV 132.8 cm/sec, EDV 41.2 cm/sec ECA: PSV 119 cm/sec Vert: PSV 87 cm/sec ICA/CCA: 1.1 Left CCA mid: PSV 151.2 cm/sec CCA dist: PSV 70.2 cm/sec ICA prox: PSV 154.2 cm/sec, EDV 45.8 cm/sec ICA mid: PSV 180.1 cm/sec, EDV 47.3 cm/sec ICA dist: PSV 189.3 cm/sec, EDV 61.1 cm/sec ECA: PSV 67.9 cm/sec Vert: PSV 91.6 cm/sec ICA/CCA: 1.3 ICA diameter stenosis: Right: 50-69% by velocity and <70% by NASCET criteria. Left: 50-69% by velocity and <70% by NASCET criteria. IMPRESSION: 1. Mild bilateral carotid artery plaquing. 2. In the right carotid artery there is elevated velocity possibly representing 50-69% stenosis. 3. In the left carotid artery there is elevated velocity possibly representing 50-69% stenosis. 4. Normal antegrade flow is present in bilateral vertebral arteries. General Recommendations: Stenosis =50% ICA - Follow-up ultrasound 6-12 months Stenosis <50% ICA - High Risk Patient with plaque - Follow-up ultrasound 1-2 years Normal Study but High Risk Patient - Follow-up ultrasound 3-5 years Management recommendations and diagnostic criteria are based on current IAC endorsed standards in Carotid Artery Stenosis: Grayscale and Doppler Ultrasound Diagnosis. Validated velocity measurements with angiographic measurements and velocity criteria are extrapolated from diameter data as defined by the Society of Radiologists in Ultrasound Consensus Conference Radiology 2003; 229;340-346. RADIA
[2018-07-08 05:30] LABS: HGB - HEMOGLOBIN 11.2 g/dL (12.0-16.0); MEAN CORPUSCULAR HEMOGLOBIN 31.5 pg (27.0-31.0); MEAN CORPUSCULAR HGB CONC 33.2 g/dL (32.0-36.0); MEAN CORPUSCULAR VOLUME 94.9 fL (81.0-99.0); MEAN PLATELET VOLUME 9.1 fL (7.9-10.8); RED BLOOD COUNT 3.54 10^6/uL (4.20-5.40); RED CELL DISTRIBUTION WIDTH 14.6 % (12.0-15.0); WHITE BLOOD COUNT 5.3 x10^3/uL (4.8-10.8)
[2018-07-08] MEDS: SODIUM CHLORIDE 0.9% 1,000 ML IV SCH (05:30)
[2018-07-08] MEDS: PANTOPRAZOLE 40 MG VIAL IVP SCH (05:30)
[2018-07-08] MEDS: SODIUM CHLORIDE FLUSH 0.9% 10 ML SYRINGE IVP PRN (05:31)
[2018-07-08 05:34] LABS: CALCIUM 8.1 mg/dL (8.5-10.3); CREATININE 0.6 mg/dL (0.4-1.0)
[2018-07-08] MEDS: KETOROLAC 30 MG/ML VIAL IVP PRN (08:30)
[2018-07-08] MEDS: ATORVASTATIN 10 MG TABLET PO SCH (08:33)
[2018-07-08] MEDS: MULTIVITAMIN TABLET PO SCH (08:33)
[2018-07-08] MEDS: methIMAzole 5 MG TABLET PO SCH (08:33)
[2018-07-08] MEDS: ASPIRIN EC 81 MG TABLET PO SCH (08:33)
[2018-07-08] MEDS: POTASSIUM CHLORIDE 10 MEQ CAPSULE PO SCH (08:33)
[2018-07-08] MEDS: POLYETHYLENE GLYCOL 3350 17 GM PACKET PO SCH (08:36)
[2018-07-08] MEDS: HYDROcod/ACETAM 5/325 MG TABLET PO PRN (08:56)
[2018-07-08] MEDS ORDERED: methIMAzole 5 MG TABLET PO SCH (09:00)
[2018-07-08] MEDS ORDERED: cefTRIAXone 1 GM in SODIUM CHLORIDE 0.9% MINIBAG 100 ML IV SCH (09:00)
[2018-07-08] MEDS ORDERED: ENOXAPARIN 40 MG/0.4 ML SYRINGE SUBQ SCH (09:00)
--- NOTE | 2018-07-08 10:35 | Discharge Plan ---
Discharge Plan Disposition: Home, Self Care Condition: Good Prescriptions: HYDROcod/ACETAM 5/325 [Purcell 5/325] 1 tab PO Q4HR PRN #20 tablet PRN Reason: Pain Amox/Clav 875/125 [Augmentin] 1 each PO Q12H #10 tablet Azithromycin [Zithromax] 250 mg PO DAILY #6 tablet Diet: Regular Activity Restrictions: Activity as Tolerated Shower Restrictions: No Driving Restrictions: No Additional Instructions or Follow Up instructions: You came to the emergency department after you had an episode of sweating and then passed out at home. When you arrived in the emergency department you appeared to have weakness and your blood pressure was low. We also noticed that your oxygen saturation was low. We did perform a chest x-ray which was suggestive of a pneumonia. Your potassium was low. While you were hospitalized you were treated with IV antibiotics, given IV fluids and had your potassium replaced. Urinary doing much better. We did work you up with an echocardiogram of your heart and carotid Dopplers and these tests did not show any obvious cause for you passing out. We believe that you passed out because of your infection and fluid loss. Now that you have been adequately hydrated and your infection is being treated this should not happen again. While you are hospitalized were also found to have some chest pain which appeared to be a pleuritic pain due to pleurisy from your pneumonia. For this pain you have been prescribed Purcell which you should only take if the pain is not controlled with Tylenol and Motrin. You have also been prescribed 2 antibiotics Augmentin and azithromycin which she will take for the next 5 days to complete treatment for your pneumonia. We recommend that you follow-up with your primary care physician if your symptoms persist beyond the 5 days of treatment. No Smoking: If you smoke, Please STOP! Call for help. Follow-up with: Lilian Gil DO [Primary Care Provider] -
--- NOTE | 2018-07-08 11:01 | DISCHARGE SUMMARY ---
Discharge Summary Admit Date: 07/07/18 Discharge Date: 07/08/18 Discharging Provider: Antonino Apodaca MD Primary Care Provider: Lilian Gil MD Code Status: Attempt Resuscitation Condition at Discharge: Good Discharge Disposition: 01 Home, Self Care - DIAGNOSES Admission Diagnoses: 1. Near syncope 2. Hypotension 3. Weakness 4. Hypoxia 5. Hyperthyroidism 6. Hypokalemia Discharge Diagnoses with Status of Each Condition: 1. Community-acquired pneumonia: Improving 2. Near syncope: Resolved 3. Generalized weakness: Resolved 4. Hypothyroidism: Stable 5. Hypokalemia: Resolved - HPI History of Present Illness: Patient is a 72-year-old female who is generally healthy with a past medical history of hyperthyroidism who presented to the emergency room after a near syncopal event at home. 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 That evening when she went to bed she started to suddenly feel unwell feeling of lightheadedness, clammy and diaphoretic. She went to stand up and felt suddenly quite weak and her legs collapsed under her but she was able to guide herself to the floor without completely passing out. She was able to leave her house on her own accord with her assisting her and she arrived at the emergency room via private vehicle. Next In the emergency room she was found to be hypotensive with blood pressures in the 80s over 50s, she had a pulse ox of 88% on room air, and there was further workup identifying a hypokalemia of 2.7. She had one episode of diarrhea after arriving to the hospital but before this did not have any diarrhea. She denies any chest pain or shortness of breath. Denies any fever, recent illnesses, or flulike symptoms. Denies any previous similar episodes.The remainder of the workup in the ER was relatively unremarkable with respect to labs and imaging. Labs as below.I was asked to admit the patient because the chest x-ray does have the suggestion of a possible community-acquired pneumonia the patient did receive 1 dose of Rocephin in the emergency room. She was also put on 2 L nasal cannula for oxygen support. - HOSPITAL COURSE Hospital Course: The patient was admitted secondary to her hypoxia and generalized weakness with near syncope. She had finding on chest x-ray of probable pneumonia. The patient was treated with ceftriaxone and azithromycin for community-acquired pneumonia. The patient had a quicker than expected recovery as she responded very well to the antibiotics. She was able to be weaned off of oxygen within 24 hours. The patient was able to walk the halls with minimal shortness of breath. The patient did state that she had cough overnight but this was also improving by the following morning. The patient did have some pleuritic chest pain which continued through the hospitalization. The patient was advised to take Tylenol and Motrin for this chest pain and was also given a prescription of [place] in the case the chest pain became severe. The patient was discharged home on oral Augmentin and azithromycin for 5 additional days to complete treatment for community-acquired pneumonia. The patient was in stable condition at the time of discharge. Patient was told to follow-up with her primary care physician once the pneumonia has resolved. The patient did receive potassium replacement and IV fluids during the hospitalization and had improvement in her blood pressure as well as her potassium levels. The patient also underwent workup for syncope. She had a carotid Doppler which did show some atherosclerosis bilaterally but there was no clinically significant stenosis. Patient's echocardiogram showed some mild diastolic dysfunction but she had a normal ejection fraction and there was no valvular abnormalities to explain syncope. While the patient was hospitalized she was hypertensive and was continued on her hydrochlorothiazide, irbesartan and metoprolol. She will need further follow-up with her primary care physician regarding her hypertension. - ALLERGIES Allergies/Adverse Reactions: Allergies Allergy/AdvReac Type Severity Reaction Status Date / Time No Known Drug Allergies Allergy Verified 07/07/18 01:44 - MEDICATIONS Home Medications: Ambulatory Orders Medication Instructions Recorded Confirmed Aspirin [Aspir 81] 81 mg PO DAILY 01/09/13 07/07/18 Lovastatin [Mevacor] 20 mg PO QPM 01/09/13 07/07/18 Multivitamin [Multivitamins] 1 each PO DAILY 01/09/13 07/07/18 [place]-3 Fatty Acids/Fish Oil 1 each PO DAILY 01/09/13 07/07/18 [[place] 3 1,000 mg Softgel] hydroCHLOROthiazide [Hydrodiuril] 25 mg PO DAILY 01/09/13 07/07/18 Potassium Chloride [Micro-K] 10 meq PO DAILY 08/05/14 07/07/18 methIMAzole [Methimazole] 5 mg PO DAILY 08/05/14 07/07/18 Calcium Carbonate [Wexr-Lpr-152] 500 mg PO DAILY 07/07/18 07/07/18 Irbesartan 300 mg PO DAILY 07/07/18 07/07/18 Magnesium Oxide [Magnesium] 400 mg PO QPM 07/07/18 07/07/18 Metoprolol Succinate [Toprol Xl] 25 mg PO QPM 07/07/18 07/07/18 Ubidecarenone [Co Q-10] 200 mg PO DAILY 07/07/18 07/07/18 Vitamin B Complex 1 each PO DAILY 07/07/18 07/07/18 Amox/Clav 875/125 [Augmentin] 1 each PO Q12H #10 tablet 07/08/18 Azithromycin [Zithromax] 250 mg PO DAILY #6 tablet 07/08/18 HYDROcod/ACETAM 5/325 [[place] 5/325] 1 tab PO Q4HR PRN #20 tablet 07/08/18 - PHYSICAL EXAM AT DISCHARGE General Appearance: positive: No acute distress, Alert Eyes Bilateral: positive: Normal inspection, PERRL, EOMI, No lid inflammation, Conjunctivae nml, No scleral icterus ENT: positive: ENT inspection nml, Pharynx nml, No signs of dehydration. negative: Purulent nasal drainage, Pharyngeal erythema, Oral lesions Neck: positive: Nml inspection, Thyroid nml, No JVD, Trachea midline. negative: Thyromegaly, Lymphadenopathy (R), Lymphadenopathy (L), Carotid bruit, Tracheal deviation Respiratory: positive: Chest non-tender, No respiratory distress, Rhonchi (Right greater than left) Cardiovascular: positive: Regular rate & rhythm, No murmur, No gallop Peripheral Pulses: positive: 2+ Abdomen: positive: Non-tender, No organomegaly, Nml bowel sounds, No distention. negative: Guarding, Rebound, Hepatomegaly Back: positive: Nml inspection. negative: CVA tenderness (R), CVA tenderness (L) Skin: positive: Color nml, No rash, Warm. negative: Cyanosis, Diaphoresis, Pallor, Skin rash Extremities: positive: Non-tender, Full ROM, Nml appearance, No pedal edema Neurologic/Psychiatric: positive: Oriented x3, CN's nml (2-12), Motor nml, Sensation nml, Mood/affect nml - LABS Result Diagrams: 07/08/18 04:45 07/08/18 04:45 Other Lab Results: Laboratory Results WBC 5.3 x10^3/uL (4.8-10.8) 07/08/18 04:45 RBC 3.54 10^6/uL (4.20-5.40) L 07/08/18 04:45 Hgb 11.2 g/dL (12.0-16.0) L 07/08/18 04:45 Hct 33.6 % (37.0-47.0) L 07/08/18 04:45 MCV 94.9 fL (81.0-99.0) 07/08/18 04:45 MCH 31.5 pg (27.0-31.0) H 07/08/18 04:45 MCHC 33.2 g/dL (32.0-36.0) 07/08/18 04:45 RDW 14.6 % (12.0-15.0) 07/08/18 04:45 Plt Count 192 10^3/uL (130-450) 07/08/18 04:45 MPV 9.1 fL (7.9-10.8) 07/08/18 04:45 Neut # (Auto) 2.4 10^3/uL (1.5-6.6) 07/07/18 01:45 Lymph # (Auto) 2.1 10^3/uL (1.5-3.5) 07/07/18 01:45 [place] # (Auto) 0.4 10^3/uL (0.0-1.0) 07/07/18 01:45 Eos # (Auto) 0.3 10^3/uL (0.0-0.7) 07/07/18 01:45 Baso # (Auto) 0.1 10^3/uL (0.0-0.1) 07/07/18 01:45 Absolute Nucleated RBC 0.00 x10^3/uL 07/07/18 01:45 Nucleated RBC % 0.1 /100WBC 07/07/18 01:45 Sodium 140 mmol/L (135-145) 07/08/18 04:45 Potassium 3.7 mmol/L (3.5-5.0) 07/08/18 04:45 Chloride 110 mmol/L (101-111) 07/08/18 04:45 Carbon Dioxide 26 mmol/L (21-32) 07/08/18 04:45 Anion Gap 4.0 (6-13) L 07/08/18 04:45 BUN 14 mg/dL (6-20) 07/08/18 04:45 Creatinine 0.6 mg/dL (0.4-1.0) 07/08/18 04:45 Estimated GFR (MDRD) 99 (>89) 07/08/18 04:45 Glucose 99 mg/dL (70-100) 07/08/18 04:45 POC Whole Bld Glucose 178 mg/dL (70 - 100) H 07/07/18 01:38 Lactic Acid 1.5 mmol/L (0.5-2.2) 07/07/18 01:45 Calcium 8.1 mg/dL (8.5-10.3) L 07/08/18 04:45 Magnesium 1.8 mg/dL (1.7-2.8) 07/07/18 06:34 Total Bilirubin 0.2 mg/dL (0.2-1.0) 07/07/18 01:45 AST 23 IU/L (10-42) 07/07/18 01:45 ALT 24 IU/L (10-60) 07/07/18 01:45 Alkaline Phosphatase 68 IU/L (42-121) 07/07/18 01:45 Troponin I < 0.04 ng/mL (<0.49) 07/07/18 01:45 B-Natriuretic Peptide 16 pg/mL (5-100) 07/07/18 01:45 Total Protein 6.6 g/dL (6.7-8.2) L 07/07/18 01:45 Albumin 3.6 g/dL (3.2-5.5) 07/07/18 01:45 Globulin 3.0 g/dL (2.1-4.2) 07/07/18 01:45 Albumin/Globulin Ratio 1.2 (1.0-2.2) 07/07/18 01:45 Lipase 46 U/L (22-51) 07/07/18 01:45 Total T3 0.63 ng/mL (0.87-1.78) L 07/07/18 06:34 Cortisol AM Sample 6.5 ug/dL 07/07/18 06:34 Urine Color DARK YELLOW 07/07/18 02:50 Urine Clarity CLEAR (CLEAR) 07/07/18 02:50 Urine pH 6.0 PH (5.0-7.5) 07/07/18 02:50 Ur Specific [place] >=1.030 (1.002-1.030) H 07/07/18 02:50 Urine Protein NEGATIVE mg/dL (NEGATIVE) 07/07/18 02:50 Urine Glucose (UA) NEGATIVE mg/dL (NEGATIVE) 07/07/18 02:50 Urine Ketones TRACE mg/dL (NEGATIVE) 07/07/18 02:50 Urine Occult Blood NEGATIVE (NEGATIVE) 07/07/18 02:50 Urine Nitrite NEGATIVE (NEGATIVE) 07/07/18 02:50 Urine Bilirubin NEGATIVE (NEGATIVE) 07/07/18 02:50 Urine Urobilinogen 0.2 (NORMAL) E.U./dL (NORMAL) 07/07/18 02:50 Ur Leukocyte Esterase NEGATIVE (NEGATIVE) 07/07/18 02:50 Ur Microscopic Review NOT INDICATED 07/07/18 02:50 Urine Culture Comments NOT INDICATED 07/07/18 02:50 - DIAGNOSTIC IMAGING Diagnostic Imaging Results: Final report reviewed Diagnostic Imaging Results Comments: CT angiography lungs Impression: 1. No large pulmonary emboli is seen. Segmental vessels are not well assessed due to only moderate enhancement of the pulmonary arteries, and motion artifact. 2. Elevated right hemidiaphragm with bibasilar atelectasis or infiltrate, right greater than left. 3. Mild cardiomegaly with possible interstitial edema. Carotid Doppler Impression: 1. Mild bilateral carotid artery plaquing. 2. In the right carotid artery there is elevated velocity possibly representing 50-69% stenosis. 3. In the left carotid artery there is elevated velocity possibly representing 50-69% stenosis 4. Normal anterograde flow is present in bilateral vertebral arteries. Echocardiogram Impression: 1. Normal left ventricular size and function, ejection fraction 65%. Mild diastolic dysfunction. The left atrium is moderately dilated. 2. Mild pulmonary hypertension. PASP 37 mmHg. The right ventricle is normal in size and function. 3. Normal mild mitral regurgitation. - FOLLOW UP Follow Up: The patient was admitted after a near syncopal episode when she presents to the emergency department hypoxic and hypotensive. The patient was believed to have a community-acquired pneumonia and treated with IV antibiotics. The patient had significant improvement in her symptoms much quicker than what was expected. The patient was able to walk the halls with good strength and no shortness of breath. She was discharged home with oral antibiotics. She will follow-up with her primary care physician once she is completed treatment for her pneumonia. - TIME SPENT Time Spent in Discharge (Minutes): 40
[2018-07-08 12:19] VITALS: BP 152/69
== END 2018-07-08 12:00 | disposition home or self-care (01) | DRG 195 ==
LOC: ED 01:14 → MS3 05:11
PROVIDERS: ADMIT Family Medicine Sports Medicine; ATTEND Internal Medicine
DX: J18.1 Lobar pneumonia, unspecified organism (principal); E87.6 Hypokalemia; I10 Essential (primary) hypertension; E78.00 Pure hypercholesterolemia, unspecified; E03.9 Hypothyroidism, unspecified; K59.09 Other constipation; Z96.659 Presence of unspecified artificial knee joint; Z79.82 Long term (current) use of aspirin; I95.9 Hypotension, unspecified; R09.02 Hypoxemia; I65.23 Occlusion and stenosis of bilateral carotid arteries
CPT/HCPCS: 36415; 51701; 71275; 80048; 80053; 81001; 81003; 82533; 83605; 83690; 83735; 83880; 84439; 84443; 84480; 84481; 84484; 85025; 85027; 87040; 87086; 93005; 93306; 93880; 96365; 96366; 96375; 99285

== ENCOUNTER 2018-07-20 08:00 | Outpatient (CLI) | payer MEDICARE | END 2018-07-20 23:59 | disposition home or self-care (01) | LOC: LAB.WCP 08:00 | PROVIDERS: ATTEND Family Medicine | DX: R19.7 Diarrhea, unspecified (principal) | CPT/HCPCS: 87493 ==

== ENCOUNTER 2018-09-11 14:00 | Outpatient (CLI) | payer MEDICARE | END 2018-09-11 23:59 | disposition home or self-care (01) | LOC: LAB.R 14:00 | PROVIDERS: ATTEND Physician Assistant Medical | DX: R30.0 Dysuria (principal) | CPT/HCPCS: 87086 ==

== ENCOUNTER 2018-09-21 20:42 | Outpatient (CLI) | payer MEDICARE ==
--- NOTE | 2018-09-22 08:48 | Ultrasound Report ---
Reason: FLANK PAIN,RIGHT Procedure Date: 09/21/2018 Accession Number: [id number] / [id number] Procedure: US - Retroperitoneal CPT Code: FULL RESULT: EXAM: RENAL ULTRASOUND EXAM DATE: 09/21/2018 11:00 PM. CLINICAL HISTORY: Flank pain, right. COMPARISON: ABDOMEN/PELVIS W/O 12/24/2014 4:[address] ABD AND PELVIS WITH CONTRAST 10/18/2012 7:05 PM. TECHNIQUE: Real-time scanning was performed with static images obtained. FINDINGS: Right Kidney: 11.1 x 5.1 x 4.5 cm. Normal echotexture with no stones, contour-deforming masses, or hydronephrosis. Several parapelvic simple cysts. 1.5 cm lower pole simple cyst. Left Kidney: 10.5 x 4.9 x 5.1 cm. Normal echotexture with no stones, contour-deforming masses, or hydronephrosis. Several subcentimeter simple cysts, largest 1 cm lower pole. Bladder: Bilateral jets seen. The prevoid bladder volume was 332 cc. The postvoid bladder volume was 142 cc. Other: None. IMPRESSION: 1. Moderate postvoiding residual. No stones or hydronephrosis. 2. Bilateral subcentimeter simple cysts. RADIA
== END 2018-09-21 20:43 | disposition home or self-care (01) ==
LOC: DI 20:42
PROVIDERS: ATTEND Physician Assistant Medical
DX: R10.9 Unspecified abdominal pain (principal); Q61.02 Congenital multiple renal cysts
CPT/HCPCS: 76770

== ENCOUNTER 2019-11-15 08:00 | Outpatient (CLI) | payer MEDICARE ==
[2019-11-15 13:12] LABS: BASOPHILS # (AUTO) 0.1 10^3/uL (0.0-0.1); BASOPHILS % (AUTO) 1.7 %; EOSINOPHILS # (AUTO) 0.3 10^3/uL (0.0-0.7); EOSINOPHILS % (AUTO) 5.1 %; HGB - HEMOGLOBIN 12.7 g/dL (12.0-16.0); LYMPHOCYTES % (AUTO) 37.7 %; MEAN CORPUSCULAR HGB CONC 32.3 g/dL (32.0-36.0); MEAN PLATELET VOLUME 12.1 fL (7.9-10.8); MONOCYTES # (AUTO) 0.5 10^3/uL (0.0-1.0); MONOCYTES % (AUTO) 8.7 %; NEUTROPHILS # (AUTO) 2.5 10^3/uL (1.5-6.6); NEUTROPHILS % (AUTO) 46.6 %; PLT - PLATELET COUNT 234 10^3/uL (130-450); RED BLOOD COUNT 3.97 10^6/uL (4.20-5.40); RED CELL DISTRIBUTION WIDTH 13.8 % (12.0-15.0); WHITE BLOOD COUNT 5.3 x10^3/uL (4.8-10.8)
[2019-11-15 13:47] LABS: ALBUMIN 3.8 g/dL (3.2-5.5); ALBUMIN/GLOBULIN RATIO 1.3 (1.0-2.2); ALKALINE PHOSPHATASE 54 IU/L (42-121); ALT ALANINE AMINOTRANSFERASE 23 IU/L (10-60); AST ASPARTATE AMINOTRANSFERASE 24 IU/L (10-42); BILIRUBIN,TOTAL 0.4 mg/dL (0.2-1.0); BUN - BLOOD UREA NITROGEN 21 mg/dL (6-20); CALCIUM 8.9 mg/dL (8.5-10.3); CARBON DIOXIDE - CO2 30 mmol/L (21-32); CHLORIDE 104 mmol/L (101-111); CHOL/HDL RATIO 2.4 (<4.4); CHOLESTEROL 157 mg/dL; CREATININE 0.8 mg/dL (0.4-1.0); GLUCOSE 95 mg/dL (70-100); HDL CHOLESTEROL 66 mg/dL; LDL CHOLESTEROL,CALCULATED 68 mg/dL; SODIUM 140 mmol/L (135-145); TOTAL PROTEIN 6.8 g/dL (6.7-8.2); VLDL CHOLESTEROL 23 mg/dL
[2019-11-15 13:55] LABS: FREE T3 2.95 pg/mL (2.5-3.9)
== END 2019-11-15 23:59 | disposition home or self-care (01) ==
LOC: LAB.WCP 08:00
PROVIDERS: ATTEND Family Medicine
DX: I10 Essential (primary) hypertension (principal); E05.00 Thyrotoxicosis with diffuse goiter without thyrotoxic crisis or storm; E78.5 Hyperlipidemia, unspecified
CPT/HCPCS: 36415; 80053; 80061; 83721; 84443; 84481; 85025

== ENCOUNTER 2019-12-07 10:27 | Outpatient (CLI) | payer MEDICARE ==
--- NOTE | 2019-12-07 16:59 | XRAY Report ---
Reason: NECK PAIN Procedure Date: 12/07/2019 Accession Number: [id number] / [id number] Procedure: XR - Cervical Spine 2 View CPT Code: Final Report FULL RESULT: EXAM: CERVICAL SPINE RADIOGRAPHY EXAM DATE: 12/07/2019 11:18 AM. CLINICAL HISTORY: Cervicalgia. COMPARISONS: None. TECHNIQUE: 4 views. FINDINGS: Alignment: Normal. No spondylolisthesis or scoliosis. Bones: The cervical vertebral bodies and posterior elements are well visualized from the skull base through C7-T1. No fractures or bone lesions. Disks: There is severe diffuse degenerative disk disease seen throughout the mid and lower aspects of the cervical spine. Facets: There is moderate diffuse degenerative facet disease seen throughout the mid and lower aspect of the cervical spine. Soft Tissues: Normal. No prevertebral soft tissue swelling. The visualized lung apices are clear. IMPRESSION: 1. No acute osseous abnormality demonstrated. 2. Moderate to severe diffuse degenerative spondylosis changes throughout the cervical spine. RADIA
== END 2019-12-07 10:28 | disposition home or self-care (01) ==
LOC: DI 10:27
PROVIDERS: ATTEND Family Medicine
DX: M50.320 Other cervical disc degeneration, mid-cervical region, unspecified level (principal); M47.812 Spondylosis without myelopathy or radiculopathy, cervical region; I51.9 Heart disease, unspecified
CPT/HCPCS: 72040; 93306

== ENCOUNTER 2020-02-12 10:14 | Outpatient (CLI) | payer MEDICARE ==
--- NOTE | 2020-02-12 17:45 | XRAY Report ---
PROCEDURE: Shoulder 2 View LT INDICATIONS: LT SHOULDER PAIN TECHNIQUE: 2 views of the shoulder were acquired. COMPARISON: None. FINDINGS: Bones: No fractures or dislocations. Moderate hypertrophic osteoarthritic changes of the left acrom ioclavicular joint. No suspicious bony lesions. Visualized ribs appear intact. Soft tissues: No suspicious soft tissue calcifications. IMPRESSION: Left shoulder without acute radiographic abnormalities. Moderate hypertrophic osteoarthr itic changes of the left acromioclavicular joint. Reviewed by: Gary Cisneros MD on 02/12/2020 5:44 PM PDT Approved by: Gary Cisneros MD on 02/12/2020 5:44 PM PDT Station ID: [id number]
== END 2020-02-12 10:15 | disposition home or self-care (01) ==
LOC: DI.N 10:14
PROVIDERS: ATTEND Family Medicine
DX: M19.012 Primary osteoarthritis, left shoulder (principal)

== ENCOUNTER 2020-05-05 15:08 | Outpatient (CLI) | payer MEDICARE ==
--- NOTE | 2020-05-05 15:11 | XRAY Report ---
PROCEDURE: Ankle 3 View LT INDICATIONS: L ANKLE PAIN TECHNIQUE: 3 views of the ankle were acquired. COMPARISON: None FINDINGS: Bones: No fractures or dislocations. Ankle mortise is normally aligned. No suspicious bony lesions . Plantar calcaneal bone spur. Midfoot osteoarthritis. Soft tissues: No tibiotalar joint effusion. Achilles tendon appears normal. IMPRESSION: No fracture. No acute osseous lesion. If there is continued clinical concern for pathology, then rep eat plain film radiographs (7-10 days) or advanced imaging (CT, MR, bone scan) should be considered f or further evaluation. Reviewed by: Archana Clark MD, PhD on 05/05/2020 3:09 PM PDT Approved by: Archana Clark MD, PhD on 05/05/2020 3:09 PM PDT Station ID: [id number]
--- NOTE | 2020-05-05 15:13 | XRAY Report ---
PROCEDURE: Foot 3 View LT INDICATIONS: L FOOT PAIN TECHNIQUE: 3 views of the foot were acquired. COMPARISON: 12/14/2017 FINDINGS: Bones: No fractures or dislocations. No suspicious bony lesions. Hallux valgus deformity stable com pared to the prior examination. Mild first and second MTP joint osteoarthritis. Plantar calcaneal bon e spur. Moderate midfoot osteoarthritis. Soft tissues: No tibiotalar joint effusion. Achilles tendon appears normal. IMPRESSION: 1. No fracture. No acute osseous lesion. If there is continued clinical concern for pathology, then r epeat plain film radiographs (7-10 days) or advanced imaging (CT, MR, bone scan) should be considered for further evaluation. 2. Osteoarthritis. 3. Hallux valgus deformity. Reviewed by: Archana Clark MD, PhD on 05/05/2020 3:11 PM PDT Approved by: Archana Clark MD, PhD on 05/05/2020 3:11 PM PDT Station ID: [id number]
== END 2020-05-05 23:59 | disposition home or self-care (01) ==
LOC: DI.WCP 15:08
PROVIDERS: ATTEND Orthopaedic Surgery
DX: M25.572 Pain in left ankle and joints of left foot (principal); M19.072 Primary osteoarthritis, left ankle and foot; M20.12 Hallux valgus (acquired), left foot

== ENCOUNTER 2020-05-15 15:31 | Outpatient (CLI) | payer MEDICARE ==
--- NOTE | 2020-05-16 15:02 | Mammography Report ---
BILATERAL DIGITAL SCREENING MAMMOGRAM 3D/2D: 05/15/2020 CLINICAL: Routine screening. Comparison is made to exams dated: 04/19/2018 mammogram, 06/16/2016 mammogram, 08/27/2015 mammogram, a nd 08/27/2014 mammogram - [facility]. There are scattered fibroglandular elements i n both breasts. There are benign calcifications in both breasts. There also is a biopsy clip in the left breast. No significant masses, calcifications, or other findings are seen in either breast. There has been no significant interval change. IMPRESSION: BENIGN There is no mammographic evidence of malignancy. A 1 year screening mammogram is recommended. This exam was interpreted at Station ID: [id number]. NOTE: For mammograms, a report in lay terms will be sent to the patient. Approximately 15% of breast malignancies will not be visualized mammographically. In the management of a palpable breast mass, a negative mammogram must not discourage biopsy of a clinically suspicious lesion. Electronically Signed By: Isaac Hannon M.D. [facility] [place]:05/15/2020 16:42:41 ACR BI-RADS Category 2: Benign Finding(s) 3342F PARENCHYMAL PATTERN: (A) - The breast(s) demonstrate(s) scattered fibroglandular densities. BI-RADS CATEGORY: (2) - 2 RECOMMENDATION: (ANNUAL) - Recommend routine annual screening mammography. [id number] 1 year screening LATERALITY: (B)
== END 2020-05-15 15:32 | disposition home or self-care (01) ==
LOC: DI.N 15:31
DX: Z12.31 Encounter for screening mammogram for malignant neoplasm of breast (principal)
CPT/HCPCS: 77063; 77067

== ENCOUNTER 2020-06-06 13:38 | Outpatient (CLI) | payer MEDICARE ==
--- NOTE | 2020-06-06 16:51 | MRI Report ---
PROCEDURE: Ankle LT W/O INDICATIONS: LT ANKLE/FOOT OSTEOARTHRITIS TECHNIQUE: Noncontrast sagittal T1 spin echo and T2 fast spin echo with fat saturation, axial proton density fas t spin echo and T2 fast spin echo with fat saturation, coronal T1 spin echo and T2 fast spin echo wit h fat saturation through the ankle/hindfoot. COMPARISON: None. FINDINGS: Image quality: Excellent. Bones and joints: There is small amount of tibiotalar joint and subtalar joint fluid. No gross intra- articular loose body. Moderate osteoarthritic changes are noted at subtalar joint, talonavicular join t, calcaneocuboid joint, intertarsal joints and tarsometatarsal joints. No evidence of osteochondral lesion of the talar dome. No fracture or dislocation. No suspicious intraosseous lesion. Well-defined plantar calcaneal enthesophyte is seen. Medial structures: Significant soft tissue swelling and edema is seen around ankle joint predominant ly involving anterior and medial aspect of ankle joint. The posterior tibialis, flexor digitorum long us, and flexor hallucis longus tendons are grossly intact. The posterior tibial neurovascular bundle appears normal within the tarsal tunnel, without extrinsic mass effect. There is thickening of the d eltoid ligament and spring ligament complex suggestive of ligament sprain/low-grade partial thickness tear. Lateral structures: The anterior talofibular, calcaneofibular, and posterior talofibular ligaments a ppear intact. More superiorly, the anterior and posterior tibiofibular ligaments appear normal, as i s the intermalleolar ligament. The tibiofibular syndesmosis is normal in width at 2 mm or less. The peroneus longus and brevis tendons demonstrate normal location and morphology. Adjacent bony perone al tubercle and retrotrochlear prominence are normal in size. The sinus tarsi demonstrates normal fa tty signal, without edema, fibrosis, or cyst formation. Visualized sinus tarsi components (cervical ligament, interosseous talocalcaneal ligament, roots of the inferior extensor retinaculum) appear nor mal. Anterior structures: The tibialis anterior, extensor hallucis longus, and extensor digitorum longus tendons appear intact. Posterior and plantar structures: Achilles tendon is intact. Medial and lateral bands of the planta r fascia are of normal thickness. No abductor digiti quinti muscle atrophy to suggest Barrera neuropa thy. IMPRESSION: 1. Moderate midfoot and hindfoot joint osteoarthritic changes most prominent involving talonavicular joint and calcaneocuboid joint. No fracture or dislocation. Well-defined plantar calcaneal enthesophy te. Small amount of joint effusion. 2. Ankle tendons are grossly intact. 3. Suggestion of sprain/low-grade partial thickness tear involving medial ankle ligaments as above. L ateral ankle ligaments are grossly intact. Reviewed by: Spencer Marques MD on 06/06/2020 4:50 PM PST Approved by: Spencer Marques MD on 06/06/2020 4:50 PM PST Station ID: [id number]
== END 2020-06-06 13:39 | disposition home or self-care (01) ==
LOC: DI 13:38
PROVIDERS: ATTEND Orthopaedic Surgery
DX: M19.072 Primary osteoarthritis, left ankle and foot (principal); M77.32 Calcaneal spur, left foot

== ENCOUNTER 2020-08-20 16:39 | Outpatient (CLI) | payer MEDICARE ==
--- NOTE | 2020-08-21 09:08 | MRI Report ---
PROCEDURE: Shoulder LT W/O INDICATIONS: LEFT ROTATOR CUFF TEAR TECHNIQUE: Noncontrast oblique coronal T2 fast spin echo with fat saturation, oblique sagittal T1 spin echo and T2 fast spin echo with fat saturation, axial T1 spin echo and T2 fast spin echo with fat saturation t hrough the shoulder. COMPARISON: None. FINDINGS: Image quality: Excellent. Rotator cuff: Mild T2 signal elevation diffusely throughout the supraspinatus, and infraspinatus tend ons at the humeral insertion sites, indicating tendinopathy. Superimposed moderate grade partial-thic kness intrasubstance tearing of the mid supraspinatus tendon at the humeral insertion site extending to the muscular tendinous junction. Superimposed low-grade partial thickness intrasubstance tearing o f the anterior, mid, and posterior infraspinatus tendon at the muscular tendinous junction. Low-grade partial-thickness tearing of the mid/upper subscapularis tendon at the humeral insertion site. Teres minor is intact. No rotator cuff atrophy. Bones and bursae: No bone marrow contusions or fractures. Moderate glenohumeral and mild subchondral degenerative marrow edema within the bony glenoid. Acromioclavicular joint degeneration. The acromi on demonstrates conventional anatomy, without an os acromiale. No pathologic subacromial/subdeltoid bursal fluid is present. Capsule and soft tissues: Moderate coronal humeral joint effusion. Intra-articular loose body within the subcoracoid recess measuring 17 mm. Diffuse glenoid labral tearing. The long head of the bicep s tendon demonstrates normal location and morphology. The rotator interval appears normal, without f ibrosis. The coracohumeral ligament is normal in thickness. IMPRESSION: 1. Acromial clavicular and glenohumeral joint osteoarthritis associated with diffuse labral tearing. 2. No humeral joint effusion with intra-articular loose body. 3. Supraspinatus and infraspinatus tendinopathy. Partial thickness tears of the supraspinatus, infras pinatus, and subscapularis tendons. Reviewed by: Aleshia Cramer MD on 08/21/2020 9:06 AM PST Approved by: Aleshia Cramer MD on 08/21/2020 9:06 AM PST Station ID: [id number]
== END 2020-08-20 16:40 | disposition home or self-care (01) ==
LOC: DI 16:39
PROVIDERS: ATTEND Orthopaedic Surgery
DX: M75.102 Unspecified rotator cuff tear or rupture of left shoulder, not specified as traumatic (principal); M19.012 Primary osteoarthritis, left shoulder; M75.112 Incomplete rotator cuff tear or rupture of left shoulder, not specified as traumatic

== ENCOUNTER 2021-03-07 12:53 | Outpatient (CLI) | payer MEDICARE ==
--- NOTE | 2021-03-07 18:41 | Ultrasound Report ---
PROCEDURE: Head or Neck Soft Tissue INDICATIONS: GOITER TECHNIQUE: Real time scanning was performed of the thyroid, with image documentation. COMPARISON: February 16, 2020 thyroid ultrasound. April 27, 2018 thyroid ultrasound. FINDINGS: Right thyroid lobe measures 4.1 x 1.7 x 1.6 cm. Left thyroid lobe measures 3.7 x 1.6 x 1.8 cm. The is thmus measures 0.4 cm in thickness. The thyroid is overall heterogeneous in echotexture with numerous nodules. In the right thyroid or superior aspect, there is a 1.0 x 0.8 x 0.3 cm colloid cyst. In the right mid thyroid there is a 0.7 x 0.4 x 0.3 cm wide and tall predominantly solid hypoechoic s moothly marginated nodule. This previously measured 0.6 x 0.4 x 0.3 cm. In the lateral right mid thyroid there is a 0.8 x 0.7 x 0.5 cm predominantly cystic wider than tall s moothly marginated hyperechoic nodule. This previously measured 0.7 x 0.7 x 0.6 cm. In the deep right inferior thyroid lobe there is a 1.1 x 1.0 x 1.0 cm hypoechoic nodule with ill-defi suman margins, partially secondary to shadowing from the adjacent trachea. The nodule has mildly increa sed in size since 2018 when measured 1.0 x 1.0 x 0.8 cm. In the superior left thyroid lobe there is a 0.7 x 0.7 x 0.4 cm wide and tall solid hypoechoic smooth ly marginated nodule which previously measured 0.6 x 0.5 x 0.4 cm. In the mid left thyroid there is a 0.5 x 0.4 x 0.3 cm wide and tall solid hypoechoic smoothly margina herve nodule which has decreased in size from previous measurement of 1.1 x 0.8 x 0.7 cm. IMPRESSION: A partially captured 1.1 cm right inferior thyroid nodule is difficult to assess for TI-RADS manageme nt criteria based on its location but appears to have mildly increased in size since 2018. Continued annual sonographic assessment or percutaneous sampling if not previously performed is recommended. Remainder of thyroid nodules are subcentimeter with a TI-RADS score of 4 or less and do not require d edicated follow-up imaging. Reviewed by: Dung Cheung on 03/07/2021 5:40 PM LE[facility] Approved by: Dung Cheung on 03/07/2021 5:40 PM LE[facility] Station ID: [id number]
== END 2021-03-07 12:54 | disposition home or self-care (01) ==
LOC: DI 12:53
PROVIDERS: ATTEND Internal Medicine Endocrinology, Diabetes & Metabolism
DX: E04.2 Nontoxic multinodular goiter (principal)

== ENCOUNTER 2021-04-09 08:00 | Outpatient (CLI) | payer MEDICARE ==
[2021-04-09 18:01] LABS: BASOPHILS # (AUTO) 0.1 10^3/uL (0.0-0.1); BASOPHILS % (AUTO) 1.4 %; EOSINOPHILS # (AUTO) 0.6 10^3/uL (0.0-0.7); EOSINOPHILS % (AUTO) 8.2 %; HCT - HEMATOCRIT 40.4 % (37.0-47.0); HGB - HEMOGLOBIN 13.2 g/dL (12.0-16.0); LYMPHOCYTES # (AUTO) 2.3 10^3/uL (1.5-3.5); LYMPHOCYTES % (AUTO) 31.6 %; MEAN CORPUSCULAR HEMOGLOBIN 31.7 pg (27.0-31.0); MEAN CORPUSCULAR HGB CONC 32.7 g/dL (32.0-36.0); MEAN CORPUSCULAR VOLUME 97.1 fL (81.0-99.0); MONOCYTES # (AUTO) 0.7 10^3/uL (0.0-1.0); MONOCYTES % (AUTO) 9.2 %; NEUTROPHILS # (AUTO) 3.6 10^3/uL (1.5-6.6); NEUTROPHILS % (AUTO) 49.3 %; PLT - PLATELET COUNT 280 10^3/uL (130-450); RED BLOOD COUNT 4.16 10^6/uL (4.20-5.40); RED CELL DISTRIBUTION WIDTH 13.3 % (12.0-15.0); WHITE BLOOD COUNT 7.2 x10^3/uL (4.8-10.8)
[2021-04-09 18:23] LABS: ALBUMIN 4.3 g/dL (3.2-5.5); ALBUMIN/GLOBULIN RATIO 1.3 (1.0-2.2); ALKALINE PHOSPHATASE 58 IU/L (42-121); ALT ALANINE AMINOTRANSFERASE 23 IU/L (10-60); AST ASPARTATE AMINOTRANSFERASE 23 IU/L (10-42); BILIRUBIN,TOTAL 0.3 mg/dL (0.2-1.0); BUN - BLOOD UREA NITROGEN 20 mg/dL (6-20); CALCIUM 9.8 mg/dL (8.5-10.3); CARBON DIOXIDE - CO2 31 mmol/L (21-32); CHLORIDE 101 mmol/L (101-111); CHOL/HDL RATIO 2.5 (<4.4); CHOLESTEROL 160 mg/dL; CREATININE 0.6 mg/dL (0.4-1.0); GFR - MDRD 98 (>89); GLUCOSE 99 mg/dL (70-100); HDL CHOLESTEROL 63 mg/dL; LDL CHOLESTEROL,CALCULATED 60 mg/dL; POTASSIUM 3.6 mmol/L (3.5-5.0); SODIUM 140 mmol/L (135-145); TOTAL PROTEIN 7.6 g/dL (6.7-8.2); TRIGLYCERIDES 184 mg/dL; VLDL CHOLESTEROL 37 mg/dL
== END 2021-04-09 23:59 | disposition home or self-care (01) ==
LOC: LAB.WCP 08:00
PROVIDERS: ATTEND Family Medicine
DX: I10 Essential (primary) hypertension (principal); E78.5 Hyperlipidemia, unspecified
CPT/HCPCS: 36415; 80053; 80061; 83721; 85025

== ENCOUNTER 2022-04-26 12:31 | Outpatient (CLI) | payer MEDICARE ==
--- NOTE | 2022-04-26 15:28 | Ultrasound Report ---
PROCEDURE: Head or Neck Soft Tissue INDICATIONS: THYROTOXICOSIS TECHNIQUE: Real-time scanning was performed of the thyroid gland, with image documentation. COMPARISON: Thyroid ultrasound 03/07/2021. FINDINGS: Right: Thyroid lobe measures 3.9 x 2 x 1.7 cm, and is homogeneous in echotexture. Left: Thyroid lobe measures 3.9 x 1.6 x 1.4 cm, and is homogenous in echotexture. Isthmus: 0.4 cm thick. Nodule number: One Location: Right mid Size: 0.5 x 0.5 x 0.4 cm. Previously 0.7 x 0.4 x 0.3 cm Composition: Mixed cystic and solid Echogenicity: Isoechoic Shape: wider than tall. Margins: Smooth Echogenic foci: None Total points: 2 ACR TI-RADS category: TR 2, not suspicious Nodule number: Two Location: Mid lateral Size: 0.9 x 0.8 x 0.6 cm. Previously 0.8 x 0.7 x 0.5 cm Composition: Mixed cystic and solid Echogenicity: Isoechoic Shape: wider than tall. Margins: Smooth Echogenic foci: None Total points: 2 ACR TI-RADS category: TR 2, not suspicious Nodule number: Three Location: Left superior Size: 0.7 x 0.7 x 0.4 cm. Composition: Solid Echogenicity: Isoechoic Shape: wider than tall. Margins: Smooth Echogenic foci: None Total points: 3 ACR TI-RADS category: TR 3, mildly suspicious Nodule number: Four Location: Left inferior Size: 0.4 x 0.4 x 0.4 cm. Previously 0.5 x 0.4 x 0.3 cm. Composition: Solid Echogenicity: Hypoechoic Shape: wider than tall. Margins: Smooth Echogenic foci: None Total points: 4 ACR TI-RADS category: TR 4, moderately suspicious IMPRESSION: Multiple thyroid nodules are overall similar. Left inferior thyroid nodule measuring 0.4 cm is moderately suspicious. However, this is less than 1 cm in size. Follow-up thyroid ultrasound in one year could be considered. ACR TI-RADS definitions and recommendations: TI-RADS 1 (benign): 0 points. FNA not needed. TI-RADS 2 (not suspicious): 2 points. FNA not needed. TI-RADS 3 (mildly suspicious): 3 points. "FNA if 2.5 cm or larger, follow up if 1.5 cm or larger (at 1, 3, and 5 years). TI-RADS 4 (moderately suspicious): 4-6 points. "FNA if 1.5 cm or larger, follow up if 1 cm or larger (at 1, 2, 3, and 5 years). TI-RADS 5 (highly suspicious): 7 points or more. "FNA if 1 cm or larger, follow up if 0.5 cm or larger (every year for 5 years). Reviewed by: Isaac Hannon MD on 04/26/2022 3:27 PM PDT Approved by: Isaac Hannon MD on 04/26/2022 3:27 PM PDT Station ID: [id number]
== END 2022-04-26 12:32 | disposition home or self-care (01) ==
LOC: DI 12:31
PROVIDERS: ATTEND Internal Medicine Endocrinology, Diabetes & Metabolism
DX: E04.2 Nontoxic multinodular goiter (principal); E05.00 Thyrotoxicosis with diffuse goiter without thyrotoxic crisis or storm

== ENCOUNTER 2022-12-29 11:14 | Outpatient (CLI) | payer MEDICARE ==
[2022-12-29 18:41] LABS: BASOPHILS # (AUTO) 0.1 10^3/uL (0.0-0.1); BASOPHILS % (AUTO) 1.7 %; EOSINOPHILS # (AUTO) 0.6 10^3/uL (0.0-0.7); EOSINOPHILS % (AUTO) 9.3 %; HCT - HEMATOCRIT 40.5 % (37.0-47.0); HGB - HEMOGLOBIN 13.1 g/dL (12.0-16.0); LYMPHOCYTES # (AUTO) 1.9 10^3/uL (1.5-3.5); LYMPHOCYTES % (AUTO) 32.1 %; MEAN CORPUSCULAR HEMOGLOBIN 31.6 pg (27.0-31.0); MEAN CORPUSCULAR HGB CONC 32.3 g/dL (32.0-36.0); MEAN CORPUSCULAR VOLUME 97.8 fL (81.0-99.0); MEAN PLATELET VOLUME 12.1 fL (7.9-10.8); MONOCYTES # (AUTO) 0.5 10^3/uL (0.0-1.0); MONOCYTES % (AUTO) 8.4 %; NEUTROPHILS # (AUTO) 2.9 10^3/uL (1.5-6.6); NEUTROPHILS % (AUTO) 48.5 %; PLT - PLATELET COUNT 292 10^3/uL (130-450); RED BLOOD COUNT 4.14 10^6/uL (4.20-5.40); WHITE BLOOD COUNT 5.9 x10^3/uL (4.8-10.8)
[2022-12-29 19:36] LABS: ALBUMIN 3.7 g/dL (3.2-5.5); ALBUMIN/GLOBULIN RATIO 1.2 (1.0-2.2); ALKALINE PHOSPHATASE 58 IU/L (42-121); ALT ALANINE AMINOTRANSFERASE 22 IU/L (10-60); AST ASPARTATE AMINOTRANSFERASE 24 IU/L (10-42); BILIRUBIN,TOTAL 0.5 mg/dL (0.2-1.0); BUN - BLOOD UREA NITROGEN 18 mg/dL (6-20); CALCIUM 9.1 mg/dL (8.5-10.3); CARBON DIOXIDE - CO2 29 mmol/L (21-32); CHLORIDE 103 mmol/L (101-111); CHOL/HDL RATIO 2.1 (<4.4); CHOLESTEROL 145 mg/dL; CREATININE 0.7 mg/dL (0.4-1.0); GFR - MDRD 81 (>89); GLUCOSE 100 mg/dL (70-100); HDL CHOLESTEROL 68 mg/dL; LDL CHOLESTEROL,CALCULATED 58 mg/dL; LDL/HDL RATIO 0.9 (<4.4); POTASSIUM 3.3 mmol/L (3.5-5.0); SODIUM 139 mmol/L (135-145); THYROID STIMULATING HORMONE 1.75 uIU/mL (0.34-5.60); TOTAL PROTEIN 6.9 g/dL (6.7-8.2); TRIGLYCERIDES 97 mg/dL; VLDL CHOLESTEROL 19 mg/dL
== END 2022-12-29 11:15 | disposition home or self-care (01) ==
LOC: LAB.N 11:14
PROVIDERS: ATTEND Nurse Practitioner Family
DX: I10 Essential (primary) hypertension (principal); E78.5 Hyperlipidemia, unspecified
CPT/HCPCS: 36415; 80053; 80061; 83721; 84443; 85025

== ENCOUNTER 2023-01-15 13:20 | Outpatient (CLI) | payer MEDICARE ==
--- NOTE | 2023-01-15 20:31 | XRAY Report ---
PROCEDURE: Cervical Spine Complete INDICATIONS: CHRONIC NECK PAIN TECHNIQUE: 4 views of the cervical spine acquired. COMPARISON: None. FINDINGS: Bones: No fractures or dislocations to the vertebra level. Oblique images demonstrate no bony fora alexus stenoses. Multilevel degenerative changes of the cervical spine. Anterior and posterior osteop hytes are seen at multiple levels. Disc space narrowing at multiple levels. There is rightward curvat ure of the thoracolumbar spine. Soft tissues: No prevertebral soft tissue swelling. IMPRESSION: 1. Multilevel degenerative changes of the cervical spine. 2. 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 3. Rightward curvature of the thoracolumbar spine. Reviewed by: Shaquille Meza on 01/15/2023 7:30 PM [facility] Approved by: Shaquille Meza on 01/15/2023 7:30 PM LE[facility] Station ID: [id number]
== END 2023-01-15 13:21 | disposition home or self-care (01) ==
LOC: DI 13:20
PROVIDERS: ATTEND Nurse Practitioner Family
DX: M50.30 Other cervical disc degeneration, unspecified cervical region (principal); M47.812 Spondylosis without myelopathy or radiculopathy, cervical region; M43.9 Deforming dorsopathy, unspecified

== ENCOUNTER 2023-08-15 15:06 | Outpatient (CLI) | payer MEDICARE | END 2023-08-15 15:07 | disposition home or self-care (01) | LOC: CAM 15:06 | PROVIDERS: ATTEND Nurse Practitioner Family | DX: M54.2 Cervicalgia (principal); G89.29 Other chronic pain | CPT/HCPCS: 97810; 97811 ==

== ENCOUNTER 2023-08-22 14:27 | Outpatient (CLI) | payer MEDICARE | END 2023-08-22 14:28 | disposition home or self-care (01) | LOC: CAM 14:27 | PROVIDERS: ATTEND Nurse Practitioner Family | DX: M54.2 Cervicalgia (principal); G89.29 Other chronic pain | CPT/HCPCS: 97813; 97814 ==

== ENCOUNTER 2023-08-25 10:57 | Outpatient (CLI) | payer MEDICARE ==
[2023-08-25 17:34] LABS: BASOPHILS # (AUTO) 0.1 10^3/uL (0.0-0.1); BASOPHILS % (AUTO) 1.7 %; EOSINOPHILS # (AUTO) 0.4 10^3/uL (0.0-0.7); EOSINOPHILS % (AUTO) 7.1 %; HCT - HEMATOCRIT 40.4 % (37.0-47.0); HGB - HEMOGLOBIN 12.9 g/dL (12.0-16.0); LYMPHOCYTES # (AUTO) 1.9 10^3/uL (1.5-3.5); LYMPHOCYTES % (AUTO) 36.9 %; MEAN CORPUSCULAR HEMOGLOBIN 31.8 pg (27.0-31.0); MEAN CORPUSCULAR HGB CONC 31.9 g/dL (32.0-36.0); MEAN CORPUSCULAR VOLUME 99.5 fL (81.0-99.0); MEAN PLATELET VOLUME 11.8 fL (7.9-10.8); MONOCYTES # (AUTO) 0.4 10^3/uL (0.0-1.0); MONOCYTES % (AUTO) 7.7 %; NEUTROPHILS # (AUTO) 2.4 10^3/uL (1.5-6.6); NEUTROPHILS % (AUTO) 46.4 %; PLT - PLATELET COUNT 264 10^3/uL (130-450); RED BLOOD COUNT 4.06 10^6/uL (4.20-5.40); RED CELL DISTRIBUTION WIDTH 12.9 % (12.0-15.0); WHITE BLOOD COUNT 5.2 x10^3/uL (4.8-10.8)
[2023-08-25 17:52] LABS: ALBUMIN 4.2 g/dL (3.2-5.5); ALBUMIN/GLOBULIN RATIO 1.5 (1.0-2.2); ALKALINE PHOSPHATASE 55 IU/L (42-121); ALT ALANINE AMINOTRANSFERASE 16 IU/L (10-60); AST ASPARTATE AMINOTRANSFERASE 21 IU/L (10-42); BILIRUBIN,TOTAL 0.3 mg/dL (0.2-1.0); BUN - BLOOD UREA NITROGEN 16 mg/dL (6-20); CALCIUM 9.4 mg/dL (8.5-10.3); CARBON DIOXIDE - CO2 32 mmol/L (21-32); CHLORIDE 104 mmol/L (101-111); CHOLESTEROL 144 mg/dL; CREATININE 0.7 mg/dL (0.6-1.3); GFR - MDRD 81 (>89); GLUCOSE 94 mg/dL (74-104); HDL CHOLESTEROL 72 mg/dL; LDL CHOLESTEROL,CALCULATED 50 mg/dL; LDL/HDL RATIO 0.7 (<4.4); POTASSIUM 3.8 mmol/L (3.5-4.5); SODIUM 141 mmol/L (135-145); TRIGLYCERIDES 112 mg/dL (48-352); VLDL CHOLESTEROL 22 mg/dL
[2023-08-25 18:00] LABS: THYROID STIMULATING HORMONE 2.21 uIU/mL (0.34-5.60)
[2023-08-25 20:56] LABS: ESTIMATED AVERAGE GLUCOSE 114 mg/dL (70-100); HEMOGLOBIN A1c% 5.6 % (4.27-6.07)
== END 2023-08-25 10:58 | disposition home or self-care (01) ==
LOC: LAB.N 10:57
PROVIDERS: ATTEND Nurse Practitioner Family
DX: I10 Essential (primary) hypertension (principal); E05.00 Thyrotoxicosis with diffuse goiter without thyrotoxic crisis or storm
CPT/HCPCS: 36415; 80053; 80061; 83036; 83721; 84443; 85025

== ENCOUNTER 2023-08-29 14:49 | Outpatient (CLI) | payer MEDICARE | END 2023-08-29 14:50 | disposition home or self-care (01) | LOC: CAM 14:49 | PROVIDERS: ATTEND Nurse Practitioner Family | DX: M54.2 Cervicalgia (principal); G89.29 Other chronic pain | CPT/HCPCS: 97813; 97814 ==

== ENCOUNTER 2023-09-05 14:22 | Outpatient (CLI) | payer MEDICARE | END 2023-09-05 14:23 | disposition home or self-care (01) | LOC: CAM 14:22 | PROVIDERS: ATTEND Nurse Practitioner Family | DX: M54.2 Cervicalgia (principal); G89.29 Other chronic pain | CPT/HCPCS: 97810; 97811 ==

== ENCOUNTER 2023-09-12 13:22 | Outpatient (CLI) | payer MEDICARE ==
--- NOTE | 2023-09-12 18:16 | Ultrasound Report ---
PROCEDURE: Soft Tissue Head or Neck INDICATIONS: GOITER TECHNIQUE: Real-time scanning was performed of the thyroid gland, with image documentation. COMPARISON: FINDINGS: Right: Thyroid lobe measures 4.1 x 1.8 x 1.7 cm, and contains nodules. Left: Thyroid lobe measures 3.8 x 1.6 x 1.5 cm, and is homogenous in echotexture. Isthmus: 0.4 cm thick. Nodule number: 1 Location: Right middle pole Size: 0.6 x 0.4 x 0.5 cm, previously 0.5 x 0.4 x 0.5 cm. Composition: Spongiform (0 points). Echogenicity: Hypoechoic (2 points). Shape: wider than tall (0 points). Margins: Smooth (0 points). Echogenic foci: None (0 points). Total points: 2 ACR TI-RADS category: TI-RADS 2: Not suspicious. Nodule number: 2 Location: Right middle pole laterally Size: 0.8 x 0.6 x 0.7 cm, previously 0.8 x 0.6 x 0.9 cm. Composition: Cystic / almost completely cystic (0 points). Echogenicity: Hypoechoic (2 points). Shape: wider than tall (0 points). Margins: Smooth (0 points). Echogenic foci: None (0 points). Total points: 2 ACR TI-RADS category: TI-RADS 2: Not suspicious. Nodule number: 3 Location: Left upper pole Size: 0.7 x 0.5 x 0.7 cm, previously 0.7 x 0.4 x 0.7 cm. Composition: Spongiform (0 points). Echogenicity: Hypoechoic (2 points). Shape: wider than tall (0 points). Margins: Smooth (0 points). Echogenic foci: None (0 points). Total points: 2 ACR TI-RADS category: TI-RADS 2: Not suspicious. Nodule number: Four Location: Left lower pole Size: 0.5 x 0.4 x 0.6 cm, previously 0.4 x 0.4 x 0.4 cm. Composition: Spongiform (0 points). Echogenicity: Hypoechoic (2 points). Shape: wider than tall (0 points). Margins: Smooth (0 points). Echogenic foci: None (0 points). Total points: 2 ACR TI-RADS category: TI-RADS 2: Not suspicious. IMPRESSION: Multiple small nonsuspicious nodules. Based on definitions and recommendations below, no further routine follow-up is required. ACR TI-RADS definitions and recommendations: TI-RADS 1 (benign): 0 points. FNA not needed. TI-RADS 2 (not suspicious): 2 points. FNA not needed. TI-RADS 3 (mildly suspicious): 3 points. "FNA if 2.5 cm or larger, follow up if 1.5 cm or larger (at 1, 3, and 5 years). TI-RADS 4 (moderately suspicious): 4-6 points. "FNA if 1.5 cm or larger, follow up if 1 cm or larger (at 1, 2, 3, and 5 years). TI-RADS 5 (highly suspicious): 7 points or more. "FNA if 1 cm or larger, follow up if 0.5 cm or larger (every year for 5 years). Reviewed by: Jeffrey Bowden MD on 09/12/2023 6:15 PM PST Approved by: Jeffrey Bowden MD on 09/12/2023 6:15 PM PST Station ID: [id number]
== END 2023-09-12 13:23 | disposition home or self-care (01) ==
LOC: DI 13:22
PROVIDERS: ATTEND Internal Medicine Endocrinology, Diabetes & Metabolism
DX: E04.2 Nontoxic multinodular goiter (principal); E05.00 Thyrotoxicosis with diffuse goiter without thyrotoxic crisis or storm

== ENCOUNTER 2023-09-12 14:15 | Outpatient (CLI) | payer MEDICARE | END 2023-09-12 14:16 | disposition home or self-care (01) | LOC: CAM 14:15 | PROVIDERS: ATTEND Nurse Practitioner Family | DX: M54.2 Cervicalgia (principal); G89.29 Other chronic pain | CPT/HCPCS: 97810; 97811 ==

== ENCOUNTER 2024-01-30 13:00 | Outpatient (CLI) | payer MEDICARE | END 2024-01-30 13:01 | disposition home or self-care (01) | LOC: CAM 13:00 | PROVIDERS: ATTEND Nurse Practitioner Family | DX: M54.2 Cervicalgia (principal); G89.29 Other chronic pain; I10 Essential (primary) hypertension; Z79.899 Other long term (current) drug therapy; E05.00 Thyrotoxicosis with diffuse goiter without thyrotoxic crisis or storm; E04.9 Nontoxic goiter, unspecified | CPT/HCPCS: 36415; 80048; 80053; 84439; 84443; 84481; 85025; 97810; 97811 ==

== ENCOUNTER 2024-01-30 15:44 | Outpatient (CLI) | payer MEDICARE ==
[2024-01-30 17:57] LABS: BASOPHILS # (AUTO) 0.1 10^3/uL (0.0-0.1); BASOPHILS % (AUTO) 1.2 %; EOSINOPHILS # (AUTO) 0.3 10^3/uL (0.0-0.7); EOSINOPHILS % (AUTO) 4.4 %; HCT - HEMATOCRIT 40.9 % (37.0-47.0); HGB - HEMOGLOBIN 13.4 g/dL (12.0-16.0); LYMPHOCYTES # (AUTO) 2.4 10^3/uL (1.5-3.5); LYMPHOCYTES % (AUTO) 36.5 %; MEAN CORPUSCULAR HEMOGLOBIN 32.4 pg (27.0-31.0); MEAN CORPUSCULAR HGB CONC 32.8 g/dL (32.0-36.0); MEAN CORPUSCULAR VOLUME 98.8 fL (81.0-99.0); MEAN PLATELET VOLUME 11.9 fL (7.9-10.8); MONOCYTES # (AUTO) 0.5 10^3/uL (0.0-1.0); MONOCYTES % (AUTO) 7.9 %; NEUTROPHILS # (AUTO) 3.3 10^3/uL (1.5-6.6); NEUTROPHILS % (AUTO) 49.8 %; PLT - PLATELET COUNT 254 10^3/uL (130-450); RED BLOOD COUNT 4.14 10^6/uL (4.20-5.40); WHITE BLOOD COUNT 6.6 x10^3/uL (4.8-10.8)
[2024-01-30 18:26] LABS: ALBUMIN 4.6 g/dL (3.2-5.5); ALBUMIN/GLOBULIN RATIO 1.7 (1.0-2.2); BILIRUBIN,TOTAL 0.4 mg/dL (0.2-1.0); CALCIUM 9.9 mg/dL (8.5-10.3); CREATININE 0.8 mg/dL (0.6-1.3); POTASSIUM 3.1 mmol/L (3.5-4.5); TOTAL PROTEIN 7.3 g/dL (6.4-8.9)
[2024-01-30 18:30] LABS: THYROID STIMULATING HORMONE 2.13 uIU/mL (0.34-5.60)
== END 2024-01-30 15:45 | disposition home or self-care (01) ==
LOC: LAB.N 15:44
PROVIDERS: ATTEND Nurse Practitioner Family
DX: I10 Essential (primary) hypertension (principal); Z79.899 Other long term (current) drug therapy; E05.00 Thyrotoxicosis with diffuse goiter without thyrotoxic crisis or storm; E04.9 Nontoxic goiter, unspecified
CPT/HCPCS: 36415; 80048; 80053; 84439; 84443; 84481; 85025

== ENCOUNTER 2024-02-06 14:17 | Outpatient (CLI) | payer MEDICARE | END 2024-02-06 14:18 | disposition home or self-care (01) | LOC: CAM 14:17 | PROVIDERS: ATTEND Nurse Practitioner Family | DX: M54.2 Cervicalgia (principal); G89.29 Other chronic pain | CPT/HCPCS: 97810; 97811 ==

== ENCOUNTER 2024-02-13 14:18 | Outpatient (CLI) | payer MEDICARE | END 2024-02-13 14:19 | disposition home or self-care (01) | LOC: CAM 14:18 | PROVIDERS: ATTEND Nurse Practitioner Family | DX: M54.2 Cervicalgia (principal); G89.29 Other chronic pain | CPT/HCPCS: 97810; 97811 ==

== ENCOUNTER 2024-02-27 14:18 | Outpatient (CLI) | payer MEDICARE | END 2024-02-27 14:19 | disposition home or self-care (01) | LOC: CAM 14:18 | PROVIDERS: ATTEND Nurse Practitioner Family | DX: M54.2 Cervicalgia (principal); G89.29 Other chronic pain | CPT/HCPCS: 97810; 97811 ==

== ENCOUNTER 2024-03-19 14:30 | Outpatient (CLI) | payer MEDICARE | END 2024-03-19 14:31 | disposition home or self-care (01) | LOC: CAM 14:30 | PROVIDERS: ATTEND Nurse Practitioner Family | DX: M54.2 Cervicalgia (principal); G89.29 Other chronic pain | CPT/HCPCS: 97810; 97811 ==

== ENCOUNTER 2024-04-02 14:22 | Outpatient (CLI) | payer MEDICARE | END 2024-04-02 14:23 | disposition home or self-care (01) | LOC: CAM 14:22 | PROVIDERS: ATTEND Nurse Practitioner Family | DX: M54.2 Cervicalgia (principal); G89.29 Other chronic pain | CPT/HCPCS: 97813; 97814 ==